=== PATIENT | male | born 1960 | race Caucasian/White ===

== ENCOUNTER 2022-04-29 10:20 | Emergency (ER) | payer OTHER, SELFPAY ==
--- NOTE | ~2022-04-29 | CT_ITS ---
EXAMINATION: CT HEAD WITHOUT CONTRAST CLINICAL INFORMATION: Frequent falls. COMPARISON: None TECHNIQUE: Contiguous axial imaging was performed from the skull base to vertex without intravenous administration of contrast. This CT examination was performed using dose optimization techniques as appropriate, variously including the following: *Automated exposure control *Adjustment of mA and/or kV according to patient size (this includes techniques or standardized protocols for targeted exams where dose is matched to indication/reason for exam; i.e. extremities or head) *Use of iterative reconstruction technique DLP: 822 mGy-cm FINDINGS: There is prominence to the sulci and ventricles consistent with involutional change. No hemorrhage, mass or mass effect or extra-axial collection. Focal encephalomalacia in the right posterior parietal lobe near the vertex may be due to an old insult. The calvarium is intact. Evidence of chronic right mastoiditis. There is mucoperiosteal thickening in the right ethmoid sinuses. CT/CT head/brain wo IV con IMPRESSION: No acute intracranial abnormality. No fracture.
--- NOTE | ~2022-04-29 | XR_ITS ---
EXAMINATION: XR CHEST CLINICAL INFORMATION: Chest pain COMPARISON: None TECHNIQUE: Frontal view of the chest was obtained. FINDINGS: There is a faint but probably diffuse reticulonodular infiltrate present. Recommend follow-up PA lateral with deep inspiratory effort. Please note this study was done portably. Heart and pulmonary vessels are normal. The osseous structures appear intact. No pneumothorax. XR/XR chest 1V IMPRESSION: Faint reticulonodular infiltrate. Recommend follow-up PA lateral film or chest CT.
[2022-04-29 10:37] VITALS: BP 152/83; PULSE 97; RESP 16; TEMP 37.6; O2SAT 95; BMI 26.6
[2022-04-29 12:52] VITALS: BP 150/88; PULSE 81; RESP 16; TEMP 36.6; O2SAT 96
--- NOTE | 2022-04-29 12:59 | ED.FALL ---
HPI - Fall General Chief Complaint: Fall Stated Complaint: multiple fall Time Seen by Provider: 04/29/22 12:34 Source: patient and family (-[place]) Mode of arrival: ambulatory Limitations: no limitations Related Data Allergies Allergy/AdvReac Type Severity Reaction Status Date / Time No Known Allergies Allergy Verified 04/29/22 10:35 [facility] Social History Social History Alcohol intake: never Patient Tobacco Use Status: Never used Tobacco Use of substances other than those prescribed or required for medical reasons: No Advance Directives: No Advance Directives Information Provided: Yes Physical Exam Vital Signs: Vital Signs: Last Vital Signs Temp 97.9 F 04/29/22 15:50 Pulse 76 04/29/22 15:50 Resp 14 04/29/22 15:50 BP 129/81 04/29/22 15:50 Pulse Ox 95 04/29/22 15:50 O2 Del Method 04/29/22 15:50 BMI result Body Mass Index 26.6 - Fall Lab Data Result diagrams: 04/29/22 13:05 04/29/22 13:05 Labs: Lab Results 04/29/22 04/29/22 04/29/22 Range/Units 13:05 13:05 13:05 WBC 7.6 (4.8-10.8) X10*3/uL RBC 3.71 L (4.60-5.80) X10*6/uL Hgb 12.1 L (14.0-18.0) g/dl Hct 35.0 L (42.0-52.0) % MCV 94.3 (80.0-98.0) fL MCH 32.6 (27.0-33.0) pg MCHC 34.6 (31.0-36.0) g/dl RDW 12.0 (11.0-16.0) % Plt Count 295 (160-400) X10*3/uL MPV 9.6 (9.4-12.4) fL Immature Gran % (Auto) 0.3 (0.0-0.4) % Neut % (Auto) 57.1 (45-73) % Lymph % (Auto) 25.2 (20-40) % [place] % (Auto) 10.4 (2-11) % Eos % (Auto) 6.2 H (0-4) % Baso % (Auto) 0.8 (0-2) % Lymph # (Auto) 1.9 (1.2-4.9) X10*3/uL [place] # (Auto) 0.8 (0.1-1.2) X10*3/uL Eos # (Auto) 0.5 H (0.0-0.4) X10*3/uL Baso # (Auto) 0.1 (0.0-0.2) X10*3/uL Abs Immat Gran (auto) 0.02 (0.00-0.03) X10*3/uL Absolute Neuts (auto) 4.3 (2.0-8.3) x10*3/uL Absolute Nucleated RBC 0.000 (0.0-0.012) X10*3/uL Nucleated RBC % (auto) 0.0 (0.0-0.2) /100WBC PT 11.2 (10.0-13.1) SEC INR 1.0 (0.9-1.1) APTT 29.0 (26.0-36.4) SEC Sodium 140 (135-145) mmol/L Potassium 4.3 (3.3-5.1) mmol/L Chloride 102 (96-108) mmol/L Carbon Dioxide 29 (22-29) mmol/L Anion Gap 13 (12-20) BUN 9 (9-16) mg/dL Creatinine 1.14 (0.5-1.4) mg/dL Estim Creat Clear Calc 66.3 Estimated GFR > 60 Random Glucose 101 (60-115) mg/dL Calcium 8.8 (8.4-10.2) mg/dL Total Bilirubin 0.3 (0.0-1.0) mg/dL AST 29 (5-37) U/L ALT 21 (0-40) U/L Alkaline Phosphatase 79 (39-117) U/L Troponin I High Sens (<3.5-35.0) ng/L Total Protein 6.9 (6.5-8.0) g/dL Albumin 3.7 (3.5-5.0) g/dL Lipase 17 (8-78) U/L Ethyl Alcohol < 10 mg/dL COVID-19 (MARIA[facility]) (Negative) COVID-19 Clin Com 08/16/22 08/16/22 Range/Units 13:06 13:06 WBC (4.8-10.8) X10*3/uL RBC (4.60-5.80) X10*6/uL Hgb (14.0-18.0) g/dl Hct (42.0-52.0) % MCV (80.0-98.0) fL MCH (27.0-33.0) pg MCHC (31.0-36.0) g/dl RDW (11.0-16.0) % Plt Count (160-400) X10*3/uL MPV (9.4-12.4) fL Immature Gran % (Auto) (0.0-0.4) % Neut % (Auto) (45-73) % Lymph % (Auto) (20-40) % [place] % (Auto) (2-11) % Eos % (Auto) (0-4) % Baso % (Auto) (0-2) % Lymph # (Auto) (1.2-4.9) X10*3/uL [place] # (Auto) (0.1-1.2) X10*3/uL Eos # (Auto) (0.0-0.4) X10*3/uL Baso # (Auto) (0.0-0.2) X10*3/uL Abs Immat Gran (auto) (0.00-0.03) X10*3/uL Absolute Neuts (auto) (2.0-8.3) x10*3/uL Absolute Nucleated RBC (0.0-0.012) X10*3/uL Nucleated RBC % (auto) (0.0-0.2) /100WBC PT (10.0-13.1) SEC INR (0.9-1.1) APTT (26.0-36.4) SEC Sodium (135-145) mmol/L Potassium (3.3-5.1) mmol/L Chloride (96-108) mmol/L Carbon Dioxide (22-29) mmol/L Anion Gap (12-20) BUN (9-16) mg/dL Creatinine (0.5-1.4) mg/dL Estim Creat Clear Calc Estimated GFR Random Glucose (60-115) mg/dL Calcium (8.4-10.2) mg/dL Total Bilirubin (0.0-1.0) mg/dL AST (5-37) U/L ALT (0-40) U/L Alkaline Phosphatase (39-117) U/L Troponin I High Sens 6.3 (<3.5-35.0) ng/L Total Protein (6.5-8.0) g/dL Albumin (3.5-5.0) g/dL Lipase (8-78) U/L Ethyl Alcohol mg/dL COVID-19 ([facility]) Negative (Negative) COVID-19 Clin Com See Note Discharge Plan Discharge Clinical Impression: Multiple falls, Multiple system atrophy Patient Disposition: Home, Self-Care Additional Instructions: The CT scan of your brain revealed no skull fracture no bleeding in the brain this is reassuring Your blood work was unremarkable. Your frequent falls are due to your multiple system atrophy. You need to get home services to help with physical therapy and strengthening at home. We did have our director of casework services talk to you and you can reach out to them if you need more help arranging home services. [facility] to help you stay at home. Follow-up with your doctor in 2 days. Please return to the emergency department if your symptoms get worse or if you develop any symptoms that are concerning to you.
[2022-04-29 13:09] LABS: MANUAL DIFF FLAG NO
[2022-04-29 13:14] LABS: Basophils Absolute Auto 0.1 X10*3/uL (0.0-0.2); Basophils Percent Auto 0.8 % (0-2); Eosinophils Absolute Auto 0.5 X10*3/uL (0.0-0.4); Eosinophils Percent Auto 6.2 % (0-4); Hemoglobin 12.1 g/dl (14.0-18.0); Imm Gran Abs Auto 0.02 X10*3/uL (0.00-0.03); Imm Gran Pct Auto 0.3 % (0.0-0.4); Lymphocytes Absolute Auto 1.9 X10*3/uL (1.2-4.9); Lymphocytes Percent Auto 25.2 % (20-40); Mean Corpuscular HGB Conc 34.6 g/dl (31.0-36.0); Mean Corpuscular Hemoglobin 32.6 pg (27.0-33.0); Mean Corpuscular Volume 94.3 fL (80.0-98.0); Mean Platelet Volume 9.6 fL (9.4-12.4); Monocytes Absolute Auto 0.8 X10*3/uL (0.1-1.2); Monocytes Percent Auto 10.4 % (2-11); Neutrophils Absolute Auto 4.3 x10*3/uL (2.0-8.3); Neutrophils Percent Auto 57.1 % (45-73); Platelet Count 295 X10*3/uL (160-400); Red Blood Count 3.71 X10*6/uL (4.60-5.80); White Blood Count 7.6 X10*3/uL (4.8-10.8)
[2022-04-29 13:15] VITALS: BP 131/86; PULSE 70; RESP 14; TEMP 36.6; O2SAT 96
[2022-04-29 13:22] LABS: Prothrombin Time 11.2 SEC (10.0-13.1)
[2022-04-29 13:30] LABS: Alanine Aminotransferase 21 U/L (0-40); Albumin Level 3.7 g/dL (3.5-5.0); Alkaline Phosphatase 79 U/L (39-117); Anion Gap 13 (12-20); Aspartate Amino Transferase 29 U/L (5-37); Bilirubin Total 0.3 mg/dL (0.0-1.0); Blood Urea Nitrogen 9 mg/dL (9-16); Calcium 8.8 mg/dL (8.4-10.2); Carbon Dioxide 29 mmol/L (22-29); Chloride 102 mmol/L (96-108); Creatinine Clr Calc Pharmacy 66.3; Estimated Glomerular Filt Rate > 60; Ethanol < 10 mg/dL; Glucose Random 101 mg/dL (60-115); Lipase 17 U/L (8-78); Potassium 4.3 mmol/L (3.3-5.1); Sodium 140 mmol/L (135-145); Total Protein 6.9 g/dL (6.5-8.0)
[2022-04-29 13:35] LABS: Troponin-I High Sensitivity 6.3 ng/L (<3.5-35.0)
[2022-04-29 13:40] LABS: COVID-19 Test Negative (Negative); IDNOW Serial# 9DB6401D
--- NOTE | 2022-04-29 14:02 | MHC.CM.ED ---
T/W MET WITH PATIENT AND IN ROOM) WITH PERMISSION. PATIENT STATES THAT HE IS NOT SERVICE CONNECTED; HOWEVER, THE [facility] DOES OFFER IN HOME HEALTH AIDE 3 DAYS PER WEEK. COUPLE MOVED INTO THE DUPLEX LAST NIGHT (04/28/22) AND PATIENT FEELS HE CAN USE HIS WALKER/ROLLATOR MORE EASILY IN THIS ENVIRONMENT. HE DOES NOT WANT TO GO TO ANY SNF HE WANTS HOME WITH POSSIBLE INCREASE IN SERVICES AND PATIENT AGREE TO A REFERRAL TO [facility] ([facility] NOW PLACED.
[2022-04-29] MEDS: Ibuprofen 600 MG TABLET PO (14:29)
[2022-04-29 15:50] VITALS: BP 129/81; PULSE 76; RESP 14; TEMP 36.6; O2SAT 95
--- NOTE | 2022-04-29 16:10 | PC.NURSE ---
discussion with pt and family at bedside- pt aox person, year, and place. refusing pt/cm services and wanting to go home. family at bedside states she no longer feels like she can care for him at home. [facility]. md aware states he will discuss with pt/family as well.
== END 2022-04-29 16:31 | disposition home or self-care (01) ==
PROVIDERS: Emergency Provider Emergency Medicine Emergency Medical Services; PCP Physician Assistant
DX: R07.89 Other chest pain (principal); M89.8X9 Other specified disorders of bone, unspecified site; R51.9 Headache, unspecified; Z91.81 History of falling; Z20.822 Contact with and (suspected) exposure to COVID-19; Z79.899 Other long term (current) drug therapy
CPT/HCPCS: 70450; 71045; 80053; 82077; 83690; 84484; 85025; 85610; 85730; 87635; 99284

== ENCOUNTER 2022-07-29 20:43 | Emergency (ER) | payer OTHER, SELFPAY ==
--- NOTE | ~2022-07-29 | CT_ITS ---
EXAMINATION: NONCONTRAST HEAD CT NONCONTRAST CERVICAL SPINE CT INDICATION INFORMATION: Fall with head strike and pain COMPARISON: Head CT 04/29/2022 TECHNIQUE: Separate noncontrast CT examinations of the head and cervical spine were performed. Coronal and sagittal images were created for each examination at the technologist workstation. This CT examination was performed using dose optimization techniques as appropriate, variously including the following: *Automated exposure control *Adjustment of mA and/or kV according to patient size (this includes techniques or standardized protocols for targeted exams where dose is matched to indication/reason for exam; i.e. extremities or head) *Use of iterative reconstruction technique DLP: 1375 mGy-cm FINDINGS: HEAD: No intra or extra-axial fluid collection, hemorrhage, or mass. No ventriculomegaly. No midline shift or herniation. Basal cisterns are patent. Powell-white matter differentiation is maintained. Unchanged small area of encephalomalacia in the high right parietal lobe consistent with prior small infarct. Mild cerebral volume loss. There is enlargement of the lateral ventricles perhaps mildly out of proportion to the degree of atrophy. Findings may be due to central white matter loss versus normal pressure hydrocephalus. Correlate clinically. Small area of hypoattenuation/gliosis in the high right parietal lobe related to patient's remote infarct. Otherwise, no abnormal hypoattenuation in the white matter. No calvarial fracture or soft tissue abnormality. Complete opacification of the frontal and right maxillary sinuses with hyperostosis consistent with chronic paranasal sinus disease. Mastoid air cells normally aerated. CERVICAL SPINE: Alignment: Minimal retrolisthesis at C4-C5, C5-C6 and C6-C7 related to advanced degenerative disc disease at these levels. No additional subluxation. Vertebra: No acute fracture. No prevertebral soft tissue swelling. Degenerative disc disease: Multilevel cervical spondylosis most advanced at C4-C5, C5-C6, and C6-C7 with severe disc height loss, endplate sclerosis, and proliferative change at these levels. Advanced multilevel facet arthrosis. Right-sided facet joint ankylosis at C2-C3. Multilevel bilateral uncovertebral spurring. At least moderate central spinal canal narrowing at C5-C6. Other findings: Small calcified granuloma in the lateral right lung apex. Lung apices otherwise grossly clear allowing for motion artifact. Thyroid gland and visualized major salivary glands unremarkable. No cervical adenopathy/mass identified. CT/CT cervical spine wo IV con IMPRESSION: 1. No intracranial hemorrhage, calvarial fracture, or other acute intracranial abnormality. 2. No traumatic subluxation or acute cervical spine fracture. 3. Mild cerebral volume loss with enlargement of the lateral ventricles perhaps mildly out of proportion to the degree of atrophy. Findings may be due to central white matter loss or conceivably normal pressure hydrocephalus. Correlate clinically with signs or symptoms of normal pressure hydrocephalus. 4. Chronic paranasal sinus disease. 5. Multilevel cervical spondylosis most advanced at C4-C5, C5-C6, and C6-C7 with at least moderate central spinal canal narrowing at C5-C6.
--- NOTE | ~2022-07-29 | CT_ITS ---
EXAMINATION: CT LUMBAR SPINE WITHOUT CONTRAST CLINICAL INFORMATION: Back pain after fall COMPARISON: None TECHNIQUE: Axial images obtained through the lumbar spine without the administration of intravenous contrast. Coronal and sagittal reformatted images were generated. This CT examination was performed using dose optimization techniques as appropriate, variously including the following: *Automated exposure control *Adjustment of mA and/or kV according to patient size (this includes techniques or standardized protocols for targeted exams where dose is matched to indication/reason for exam; i.e. extremities or head) *Use of iterative reconstruction technique DLP; 609 mGy-cm FINDINGS: Approximately 1 cm grade 2 anterolisthesis of L4 upon L5 related to advanced facet arthrosis. No additional subluxation. No pars defects. No acute fracture. Severe disc height loss at L4-L5 with endplate sclerosis, mild endplate cystic and prominent endplate proliferative change consistent with severe degenerative disc disease. Milder disc degenerative change throughout the remainder of the lumbar spine with minimal disc height loss at L2-L3. Advanced bilateral facet arthrosis at L3-L4 through L5-S1. Mild to moderate central spinal canal narrowing suspected at L3-L4 due to diffuse disc bulge and bilateral facet arthrosis with mild to moderate left and mild right neural foraminal stenosis. At L4-L5, at least moderate central spinal canal stenosis due to anterolisthesis and bilateral facet arthrosis. Moderate to severe bilateral neural foraminal narrowing. Visualized paravertebral soft tissues demonstrate normal caliber abdominal aorta with mild vascular calcifications. No retroperitoneal lymphadenopathy. No hydronephrosis. No retroperitoneal hematoma. Sigmoid diverticulosis. SI joints are congruent and intact. CT/CT lumbar spine wo IV con IMPRESSION: 1. No traumatic subluxation or acute lumbar spine fracture. 2. Grade 2 anterolisthesis of L4 upon L5 related to advanced facet arthrosis. Severe degenerative disc disease at L4-L5 with at least moderate central spinal canal stenosis and moderate to severe bilateral neural foraminal narrowing. 3. Milder disc degenerative change throughout the remainder of the lumbar spine with mild to moderate central spinal canal stenosis at L3-L4. 4. Advanced bilateral facet arthrosis at L3-L4 through L5-S1.
[2022-07-29 20:54] VITALS: BP 160/80; PULSE 100; O2SAT 98
[2022-07-29 20:55] VITALS: BP 127/84; PULSE 92; RESP 17; TEMP 36.8; O2SAT 94; BMI 31.0
--- NOTE | 2022-07-29 21:05 | ECG_ITS ---
Test Reason : FALL Blood Pressure : / mmHG Vent. Rate : 085 BPM Atrial Rate : 085 BPM P-R Int : 170 ms QRS Dur : 102 ms QT Int : 386 ms P-R-T Axes : 036 -30 021 degrees QTc Int : 459 ms Poor data quality Normal sinus rhythm Left anterior fascicular block Nonspecific T wave abnormality RSR' or QR pattern in V1 suggests right ventricular conduction delay Minimal voltage criteria for LVH, may be normal variant ( R in aVL ) Abnormal ECG No previous ECGs available Referred By: Lucinda Love Electronically Signed By:NATASHA CARBAJAL MD
--- NOTE | 2022-07-29 21:16 | ED_ITS ---
HPI - Fall General Chief Complaint: Fall Stated Complaint: fall with lower back pain Time Seen by Provider: 07/29/22 20:54 Source: patient and EMS Mode of arrival: EMS Limitations: no limitations History of Present Illness HPI Narrative: 62 year old male with with a PMH of multiple system atrophy, HTN Presents to the ED via EMS with a c-collar c/o of an unwitnessed fall today while in the bathroom. He reports being unstable standing on his legs and unsteady gait which led to the fall. He reports hitting his head against the bathtub. He denies LOC and doesn't take any blood thinner. He endorses left side head pain, neck pain and lower back pain. He denies any lightheadedness, dizziness and blurry vision. MD complaint: fall Onset (ago): hour(s) (Few hours ago) Fall from: standing Fall witnessed: no Place fall occurred: home Loss of consciousness: none Symptoms prior to fall: none Related Data Allergies Allergy/AdvReac Type Severity Reaction Status Date / Time No Known Allergies Allergy Verified 04/29/22 10:35 Review of Systems Review of Systems: Constitutional: No Fever, No Chills ENT/Mouth: No sore throat, No Rhinorrhea, No Swallowing Difficulty Eyes: No Eye Pain, No Swelling, No Redness Cardiovascular: No Chest Pain, No SOB, No Orthopnea, No Edema Respiratory: No Cough, No Sputum, No Wheezing, No dyspnea Gastrointestinal: No Nausea, No Vomiting, No Diarrhea, No abdominal Pain Genitourinary: No Dysuria, No Urinary Frequency, No Hematuria Musculoskeletal: + Left sided head pain, + Neck Pain ,+ Low back pain, No Myalgias Skin: No Skin Lesions, No rash, + Superficial scabs on bilateral legs Neuro: +Weakness, No Numbness, No Dizziness, + Headache ,+ Unsteady gait PMFSH Past Medical History Attestation statement: The following information was validated with the patient. Social History Social History Alcohol intake: never Patient Tobacco Use Status: Never used Tobacco Advance Directives: No Advance Directives Information Provided: No Physical Exam Vital Signs: Vital Signs: Last Vital Signs Temp 98.3 F 07/29/22 21:32 Pulse 84 07/29/22 21:32 Resp 16 07/29/22 21:32 BP 117/79 07/29/22 21:32 Pulse Ox 96 07/29/22 21:32 O2 Del Method 07/29/22 21:32 BMI result Body Mass Index 31.0 Appearance: Alert. Oriented X3. No acute distress. Head: no palpable swelling or notable traumatic findings on scalp/head Eyes: Pupils equal, round and reactive to light. ENT: Pharynx normal. poor dentition Neck: Normal inspection. Neck supple. CVS: Normal heart rate and rhythm. Pulses normal. Respiratory: No respiratory distress. Breath sounds normal. Abdomen: Soft and nontender. +BS x4 Skin: Skin warm and dry. Normal skin color. +Superficial scabs on legs Muskoloskeletal: +Low back tenderness, + Left side head tenderness, +Neck tenderness, + bilateral Shoulder tenderness Extremities: No lower extremity edema. Neuro: Oriented X 3. No motor deficit. No sensory deficit. +LE Weakness bilaterally but able to lift both legs off of the bed. Course Course Course Narrative: 62-year-old male with a history of multiple system atrophy and recurrent falls at home presents to the ER for evaluation of low back pain in the setting of a fall in the bathroom today. He did hit the back of his head but did not lose consciousness. He arrives in a C-collar. Reporting low back pain. Will get CT scans of his head, neck, cervical spine. No red flag symptoms of low back pain. No other injuries. He is able to move all 4 extremities without any signs of trauma. Will get lab workup as well. Results pending dispo and improvement. Reevaluation(s) Reevaluation #1: Lab workup was unremarkable. CT scan of his head and c-spine: 1.? No intracranial hemorrhage, calvarial fracture, or other acute intracranial abnormality. 2.? No traumatic subluxation or acute cervical spine fracture. 3.? Mild cerebral volume loss with enlargement of the lateral ventricles perhaps mildly out of proportion to the degree of atrophy. Findings may be due to central white matter loss or conceivably normal pressure hydrocephalus. Correlate clinically with signs or symptoms of normal pressure hydrocephalus. 4.? Chronic paranasal sinus disease. 5.? Multilevel cervical spondylosis most advanced at C4-C5, C5-C6, and C6-C7 with at least moderate central spinal canal narrowing at C5-C6. CT SCAN LUMBAR SPINE: 1.? No traumatic subluxation or acute lumbar spine fracture. 2.? Grade 2 anterolisthesis of L4 upon L5 related to advanced facet arthrosis. Severe degenerative disc disease at L4-L5 with at least moderate central spinal canal stenosis and moderate to severe bilateral neural foraminal narrowing. 3.? Milder disc degenerative change throughout the remainder of the lumbar spine with mild to moderate central spinal canal stenosis at L3-L4. 4.? Advanced bilateral facet arthrosis at L3-L4 through L5-S1. Results reviewed with the patient. Cervical collar has been removed. No midline tenderness. Discussed with the and the patient concern for recurrent falls home. They are agreeable to staying in the emergency department for physical therapy evaluation in the morning, potential placement to short- term rehab. Will place patient in physician observation at this time. Physician observation started at 11:21 pm. Patient placed in physician observation because patient is awaiting PT evaluation for the possible need of short term rehab. At the time observation was started patient's vital signs were stable. Patient is alert and oriented. Neuro exam is non-focal. CV: RRR and lungs are clear. Will continue to monitor. Time: 23:21 MDM - Fall MDM Narrative Medical decision making narrative: 62 year old male with with a PMH of multiple system atrophy, HTN presents to the ED via EMS with a c-collar c/o of an unwitnessed fall today while in the bathroom. He reports hitting his head against the bathtub. He denies LOC and doesn't take blood thinners. Reports being unstable standing on his legs and unsteady gait which led to the fall. On exam , VSS, lung CTA, Left sided head, neck and lower back tenderness and weakness of lower extremities. Concern for worsening multiple system atrophy. Low suspicion for CVA, syncopal episode Plan: EKG, labs, CT head, Lumbar spine X-ray and neck Medical Records Attestation: I reviewed the patient's medical records. Lab Data Attestation: I reviewed the patient's lab results. Result diagrams: 07/29/22 21:31 07/29/22 21:31 Labs: Lab Results 07/29/22 07/29/22 07/29/22 Range/Units 21:31 21:31 21:31 WBC 6.9 (4.8-10.8) X10*3/uL RBC 4.20 L (4.60-5.80) X10*6/uL Hgb 13.6 L (14.0-18.0) g/dl Hct 38.3 L (42.0-52.0) % MCV 91.2 (80.0-98.0) fL MCH 32.4 (27.0-33.0) pg MCHC 35.5 (31.0-36.0) g/dl RDW 12.4 (11.0-16.0) % Plt Count 340 (160-400) X10*3/uL MPV 9.5 (9.4-12.4) fL Immature Gran % (Auto) 0.3 (0.0-0.4) % Neut % (Auto) 62.0 (45-73) % Lymph % (Auto) 23.6 (20-40) % [place] % (Auto) 10.3 (2-11) % Eos % (Auto) 2.9 (0-4) % Baso % (Auto) 0.9 (0-2) % Lymph # (Auto) 1.6 (1.2-4.9) X10*3/uL [place] # (Auto) 0.7 (0.1-1.2) X10*3/uL Eos # (Auto) 0.2 (0.0-0.4) X10*3/uL Baso # (Auto) 0.1 (0.0-0.2) X10*3/uL Abs Immat Gran (auto) 0.02 (0.00-0.03) X10*3/uL Absolute Neuts (auto) 4.3 (2.0-8.3) x10*3/uL Absolute Nucleated RBC 0.000 (0.0-0.012) X10*3/uL Nucleated RBC % (auto) 0.0 (0.0-0.2) /100WBC Sodium 143 (135-145) mmol/L Potassium 3.5 (3.3-5.1) mmol/L Chloride 106 (96-108) mmol/L Carbon Dioxide 26 (22-29) mmol/L Anion Gap 15 (12-20) BUN 14 (9-16) mg/dL Creatinine 1.17 (0.5-1.4) mg/dL Estim Creat Clear Calc 73.6 Estimated GFR > 60 Random Glucose 119 H (60-115) mg/dL Calcium 9.6 D (8.4-10.2) mg/dL Magnesium 1.7 (1.6-2.6) mg/dL Total Bilirubin 0.6 (0.0-1.0) mg/dL Direct Bilirubin 0.2 (0.0-0.5) mg/dL AST 21 (5-37) U/L ALT 14 (0-40) U/L Alkaline Phosphatase 78 (39-117) U/L Total Creatine Kinase (38-174) U/L Total Protein 7.4 (6.5-8.0) g/dL Albumin 4.0 (3.5-5.0) g/dL COVID-19 ([facility]) Negative (Negative) COVID-19 Clin Com See Note 07/29/22 Range/Units 21:31 WBC (4.8-10.8) X10*3/uL RBC (4.60-5.80) X10*6/uL Hgb (14.0-18.0) g/dl Hct (42.0-52.0) % MCV (80.0-98.0) fL MCH (27.0-33.0) pg MCHC (31.0-36.0) g/dl RDW (11.0-16.0) % Plt Count (160-400) X10*3/uL MPV (9.4-12.4) fL Immature Gran % (Auto) (0.0-0.4) % Neut % (Auto) (45-73) % Lymph % (Auto) (20-40) % [place] % (Auto) (2-11) % Eos % (Auto) (0-4) % Baso % (Auto) (0-2) % Lymph # (Auto) (1.2-4.9) X10*3/uL [place] # (Auto) (0.1-1.2) X10*3/uL Eos # (Auto) (0.0-0.4) X10*3/uL Baso # (Auto) (0.0-0.2) X10*3/uL Abs Immat Gran (auto) (0.00-0.03) X10*3/uL Absolute Neuts (auto) (2.0-8.3) x10*3/uL Absolute Nucleated RBC (0.0-0.012) X10*3/uL Nucleated RBC % (auto) (0.0-0.2) /100WBC Sodium (135-145) mmol/L Potassium (3.3-5.1) mmol/L Chloride (96-108) mmol/L Carbon Dioxide (22-29) mmol/L Anion Gap (12-20) BUN (9-16) mg/dL Creatinine (0.5-1.4) mg/dL Estim Creat Clear Calc Estimated GFR Random Glucose (60-115) mg/dL Calcium (8.4-10.2) mg/dL Magnesium (1.6-2.6) mg/dL Total Bilirubin (0.0-1.0) mg/dL Direct Bilirubin (0.0-0.5) mg/dL AST (5-37) U/L ALT (0-40) U/L Alkaline Phosphatase (39-117) U/L Total Creatine Kinase 166 (38-174) U/L Total Protein (6.5-8.0) g/dL Albumin (3.5-5.0) g/dL COVID-19 (MARIA[facility]) (Negative) COVID-19 Clin Com ECG Data Attestation: I personally reviewed and interpreted this ECG as follows: ECG interpretation date: 07/29/22 ECG interpretation time: 23:24 Prior ECG tracings: not available for review Interpretation: Normal sinus rhythm, left axis deviation, ventricular rate 85 beats per minute, normal MS interval, T-wave inversion in V2 only. No ST segment elevations or depressions. Discharge Plan Discharge Clinical Impression: Low back pain, Recurrent falls Patient Disposition: Still a Patient
[2022-07-29 21:32] VITALS: BP 117/79; PULSE 84; RESP 16; TEMP 36.8; O2SAT 96
[2022-07-29 21:37] LABS: MANUAL DIFF FLAG NO
[2022-07-29 21:40] LABS: Basophils Absolute Auto 0.1 X10*3/uL (0.0-0.2); Basophils Percent Auto 0.9 % (0-2); Eosinophils Absolute Auto 0.2 X10*3/uL (0.0-0.4); Eosinophils Percent Auto 2.9 % (0-4); Hematocrit 38.3 % (42.0-52.0); Hemoglobin 13.6 g/dl (14.0-18.0); Imm Gran Abs Auto 0.02 X10*3/uL (0.00-0.03); Imm Gran Pct Auto 0.3 % (0.0-0.4); Lymphocytes Absolute Auto 1.6 X10*3/uL (1.2-4.9); Lymphocytes Percent Auto 23.6 % (20-40); Mean Corpuscular HGB Conc 35.5 g/dl (31.0-36.0); Mean Corpuscular Hemoglobin 32.4 pg (27.0-33.0); Mean Corpuscular Volume 91.2 fL (80.0-98.0); Mean Platelet Volume 9.5 fL (9.4-12.4); Monocytes Absolute Auto 0.7 X10*3/uL (0.1-1.2); Monocytes Percent Auto 10.3 % (2-11); Neutrophils Absolute Auto 4.3 x10*3/uL (2.0-8.3); Platelet Count 340 X10*3/uL (160-400); Red Cell Distribution Width 12.4 % (11.0-16.0); White Blood Count 6.9 X10*3/uL (4.8-10.8)
[2022-07-29 21:55] LABS: Alanine Aminotransferase 14 U/L (0-40); Alkaline Phosphatase 78 U/L (39-117); Anion Gap 15 (12-20); Aspartate Amino Transferase 21 U/L (5-37); Bilirubin Direct 0.2 mg/dL (0.0-0.5); Bilirubin Total 0.6 mg/dL (0.0-1.0); Blood Urea Nitrogen 14 mg/dL (9-16); Calcium 9.6 mg/dL (8.4-10.2); Carbon Dioxide 26 mmol/L (22-29); Chloride 106 mmol/L (96-108); Creatinine Clr Calc Pharmacy 73.6; Estimated Glomerular Filt Rate > 60; Glucose Random 119 mg/dL (60-115); Magnesium 1.7 mg/dL (1.6-2.6); Potassium 3.5 mmol/L (3.3-5.1); Sodium 143 mmol/L (135-145); Total Protein 7.4 g/dL (6.5-8.0)
[2022-07-29 22:10] LABS: COVID-19 Test Negative (Negative); IDNOW Serial# 16C4AD1C
[2022-07-29] MEDS: Ibuprofen 600 MG TABLET PO (23:19)
[2022-07-29] MEDS: oxyCODONE HCl Immed Release 5 MG TABLET PO (23:19)
--- NOTE | 2022-07-29 23:26 | PC.NURSE ---
Pt resting on stretcher at this time. given sunbutter and jelly sandwhich and diet esau jay. Medicated per MAR for pain.
[2022-07-29 23:54] VITALS: BP 127/75; PULSE 76; RESP 16; TEMP 36.7; O2SAT 96
[2022-07-30] VITALS (7 sets, daily range): BP systolic 108–147; BP diastolic 59–99; PULSE 66–105; RESP 16–17; TEMP 36.4–36.9; O2SAT 94–98
--- NOTE | 2022-07-30 04:00 | PC.NURSE ---
this rn observed pt sleeping quietly at this time
--- NOTE | 2022-07-30 04:40 | PC.NURSE ---
pt awake and requested pudding.this rn provided pudding as requested. instructed pt to use callbell for any additional needs
--- NOTE | 2022-07-30 11:38 | PC.NURSE ---
Gladys from pharmacy to complete med rec for this patient
--- NOTE | 2022-07-30 11:50 | PC.NURSE ---
pt had soiled himself when trying to urinate in the urinal. this tech had helped clean up the pt and change linen. pt is comfortable, no signs of distress.
[2022-07-30 12:00] LABS: Appearance Urine Clear; Color Urine Dark Yellow; Glucose Urine UA Negative (Negative); Leukocyte Esterase Urine Negative (Negative); Nitrite Urine Negative (Negative); PH 5.5 (5.0-9.0); UMIC TRIGGER UACC YES; Urine Blood Negative (Negative); Urine Ketones Trace mg/dL (Negative); Urine Protein 30 (1+) mg/dL (Neg-Trace)
[2022-07-30 12:12] LABS: Bacteria Urine None Seen (None Seen); RBC Urine 0-2 /HPF (0-2); Squamous Epithelial Cell Urine 0-2 /HPF (0-2); WBC Urine 0-5 /HPF (0-5)
--- NOTE | 2022-07-30 14:23 | MHC.CM.ED ---
Received case management consult overnight. Patient came to the ER due to a fall with back pain. Work up essentially negative. Physical therapy eval completed. Short term rehab is recommended. Patient has [facility] benefits. T/W spoke with Maggy at [place]. Patient is not service connected for short term rehab. Attempted to meet with patient in regards to discharge planning. Patient currently sleeping. Spoke with patient's , Carolina, via telephone at [phone]. Patient has traditional Medicare. T/W is in the process of trying to obtain that Medicare number. Patient lives with Carolina, ambulates with a walker and has a home health aide through [facility]. PCP is Kierra Krishnan. Copy of HCP obtained from OR. Patient has received 3 Pfizer vaccines. Patient has never been to short term rehab. Carolina agreeable to referral being broadcasted in [facility]. Carolina would like to stay close to home. [facility] would be 1st choice. Continue to monitor for d/c needs.
[2022-07-30] MEDS: Omeprazole 20 MG CAPSULE.DR PO (15:36)
[2022-07-30] MEDS: buPROPion HCl XL 300 MG TAB.ER.24H PO (15:36)
[2022-07-30] MEDS: hydroCHLOROthiazide 25 MG TABLET PO (15:36)
[2022-07-30] MEDS: Atorvastatin Calcium 20 MG TABLET PO (15:37)
--- NOTE | 2022-07-30 16:20 | PC.NURSE ---
THIS PCT ASSUMED CARE OF PT AT 1500 ,.VS TAKEN AND SARS COVID SWAB DONE AND SEND TO LAB ,CALL CASE WITHIN REACH .
--- NOTE | 2022-07-30 16:42 | PC.NURSE ---
RENAE Dangelo aware of patients HR
[2022-07-30 20:38] LABS: Influenza A PCR NEGATIVE (Negative); Influenza B PCR NEGATIVE (Negative); Resp Syncy Virus RNA Qual PCR NEGATIVE (Negative); SARS COV2 PCR INHOUSE NEGATIVE (Negative)
[2022-07-30] MEDS: traZODone HCL 100 MG TABLET 200 MG PO (20:38)
[2022-07-30] MEDS: Buprenorphine/Naloxone 2/0.5mg FILM 2 FILM SUBLINGUAL (20:41)
[2022-07-31 00:30] VITALS: BP 140/99; PULSE 108; TEMP 37.1; O2SAT 93
[2022-07-31] MEDS: Ibuprofen 600 MG TABLET PO ×3 (00:39→16:21)
--- NOTE | 2022-07-31 00:41 | PC.NURSE ---
Pt complaining of 9/10 pain in the right shoulder. Pt stated his arm got caught and is now causing pain. 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
[2022-07-31] MEDS: Omeprazole 20 MG CAPSULE.DR PO (06:02)
[2022-07-31 06:22] VITALS: BP 133/76; PULSE 95; TEMP 36.7; O2SAT 94
[2022-07-31] MEDS: Atorvastatin Calcium 20 MG TABLET PO (07:43)
[2022-07-31] MEDS: hydroCHLOROthiazide 25 MG TABLET PO (07:43)
[2022-07-31] MEDS: buPROPion HCl XL 300 MG TAB.ER.24H PO (07:43)
[2022-07-31] MEDS: Buprenorphine/Naloxone 2/0.5mg FILM 2 FILM SUBLINGUAL ×2 (07:43→21:48)
[2022-07-31] MEDS: Acetaminophen 325 MG TABLET 650 MG PO ×2 (08:44→16:20)
--- NOTE | 2022-07-31 09:01 | MHC.CM.ED ---
Addendum entered by Kaya Caballero 07/31/22 16:17: Patient and Carolina aware of discharge issues. Addendum entered by Kaya Caballero 07/31/22 13:25: [facility] is not able to offer a bed at this time due to Suboxone. Referral rebroadcasted in [facility]. Suboxone is prescribed by Rajat Ferris at the [place]. Will need [facility] Level 2. T/W already submitted for Level 2. Addendum entered by Kaya Caballero 07/31/22 13:05: While reviewing MAR, realized patient receives Suboxone. Patient has a history of opiod dependence in remission. [facility] Patient has been compliant with regimen and has consistently had negative drug screening with their providers. Original Note: Patient remains in ER. PCR Covid is negative. Medicar ID# obtained. [facility] is 1st choice. Waiting to hear if they can offer a bed today. Continue to monitor for d/c needs.
--- NOTE | 2022-07-31 09:21 | PC.NURSE ---
pt awoke easily to voice this am, sts having shoulder pain. given hs medications which include medications for pain, able to get self comfortable in stretcher. ate breakfast. pleasant in conversation, awaiting insurance information and bed placement for snf.
[2022-07-31 10:07] VITALS: BP 140/78; PULSE 83; RESP 16; O2SAT 94
--- NOTE | 2022-07-31 10:10 | PC.NURSE ---
Pt was assisted with a complete bed bath. Pt uses urinal but has some urinal incontinence.
--- NOTE | 2022-07-31 14:44 | PC.NURSE ---
pt would like to wait until his motrin is due to have his tylenol. whit updated by phone about plan of care.
--- NOTE | 2022-07-31 19:38 | PC.NURSE ---
Pt found standing at the bedside requesting assistance. Assistance provided with placing pt in bed. Pt encouraged to ask for assistance with ambulation as pt has a high fall risk. Pt verbalizes understanding. Call joya provided to pt.
[2022-07-31] MEDS: traZODone HCL 100 MG TABLET 200 MG PO (21:48)
[2022-08-01] MEDS: Acetaminophen 325 MG TABLET 650 MG PO ×4 (02:01→21:38)
[2022-08-01 02:59] VITALS: BP 134/87; PULSE 98; RESP 18; TEMP 37; O2SAT 92
--- NOTE | 2022-08-01 03:41 | PC.NURSE ---
Pt sleeping in no apparent distress. Breaths are even and unlabored with equal chest rises. Will continue to monitor.
[2022-08-01] MEDS: Omeprazole 20 MG CAPSULE.DR PO (05:50)
[2022-08-01 07:45] VITALS: BP 119/84; PULSE 84; RESP 16; O2SAT 92
[2022-08-01] MEDS: Atorvastatin Calcium 20 MG TABLET PO (08:12)
[2022-08-01] MEDS: buPROPion HCl XL 300 MG TAB.ER.24H PO (08:13)
[2022-08-01] MEDS: hydroCHLOROthiazide 25 MG TABLET PO (08:13)
--- NOTE | 2022-08-01 08:31 | MHC.CM.ED ---
Patient remains in ER. May be difficult to place due to being on Suboxone. [facility] [place] might be able to offer a bed if patient's Suboxone provider will write prescriptions for Suboxone. Continue to monitor for d/c needs.
[2022-08-01] MEDS: Buprenorphine/Naloxone 2/0.5mg FILM 2 FILM SUBLINGUAL ×2 (09:00→21:39)
[2022-08-01] MEDS: traZODone HCL 100 MG TABLET 200 MG PO (21:39)
[2022-08-02] MEDS: Magnesium Hydrox/Alum Hydrox 30 ML ORAL.SUSP PO (01:35)
[2022-08-02 01:36] VITALS: BP 140/84; PULSE 118; RESP 18; TEMP 36.7; O2SAT 94
[2022-08-02 07:20] VITALS: BP 131/91; PULSE 110; RESP 18; TEMP 36.6; O2SAT 92
[2022-08-02] MEDS: buPROPion HCl XL 300 MG TAB.ER.24H PO (08:06)
[2022-08-02] MEDS: Buprenorphine/Naloxone 2/0.5mg FILM 2 FILM SUBLINGUAL ×2 (08:07→20:37)
[2022-08-02] MEDS: Acetaminophen 325 MG TABLET 650 MG PO ×3 (08:07→20:36)
[2022-08-02] MEDS: Atorvastatin Calcium 20 MG TABLET PO (08:07)
[2022-08-02] MEDS: Omeprazole 20 MG CAPSULE.DR PO (08:07)
[2022-08-02] MEDS: hydroCHLOROthiazide 25 MG TABLET PO (08:07)
[2022-08-02 12:27] VITALS: BP 142/96; PULSE 110; RESP 18; TEMP 36.6; O2SAT 92
[2022-08-02] MEDS: Ibuprofen 600 MG TABLET PO (15:09)
--- NOTE | 2022-08-02 18:28 | PC.NURSE ---
1800 rounding done ,pt refused supper said he has indegestion ,rn hugo hurtado is aware .
--- NOTE | 2022-08-02 20:09 | PC.NURSE ---
2000 ROUNDING DONE PT WATCHING TELEVISION ,CALL CASE WITHIN REACH .
[2022-08-02 20:31] VITALS: BP 148/95; PULSE 129; RESP 20; TEMP 36.6; O2SAT 93
[2022-08-02] MEDS: traZODone HCL 100 MG TABLET 200 MG PO (20:37)
--- NOTE | 2022-08-02 20:39 | PC.NURSE ---
Pt's was connected to the monitor d/t HR 130. pt took his meds as order.
[2022-08-02 23:49] VITALS: BP 114/78; PULSE 110; RESP 16; TEMP 36.6; O2SAT 92
--- NOTE | 2022-08-03 00:06 | PC.NURSE ---
0000 ROUNDING DONE PT ASLEEP ,CALL CASE WITHIN REACH .
--- NOTE | 2022-08-03 02:10 | PC.NURSE ---
0200 rounding done pt asleep ,call joya within reach .
[2022-08-03] MEDS: Omeprazole 20 MG CAPSULE.DR PO (05:41)
[2022-08-03] MEDS: Acetaminophen 325 MG TABLET 650 MG PO ×2 (05:41→20:19)
[2022-08-03 07:17] VITALS: BP 120/85; PULSE 115; RESP 14; TEMP 36.9; O2SAT 94
[2022-08-03 09:02] VITALS: BP 117/84; PULSE 112
[2022-08-03] MEDS: hydroCHLOROthiazide 25 MG TABLET PO (09:02)
[2022-08-03] MEDS: Buprenorphine/Naloxone 2/0.5mg FILM 2 FILM SUBLINGUAL ×2 (09:02→20:19)
[2022-08-03] MEDS: buPROPion HCl XL 300 MG TAB.ER.24H PO (09:03)
[2022-08-03] MEDS: Atorvastatin Calcium 20 MG TABLET PO (09:03)
--- NOTE | 2022-08-03 11:45 | ECG_ITS ---
Test Reason : TACHYCARDIA Blood Pressure : / mmHG Vent. Rate : 125 BPM Atrial Rate : 125 BPM P-R Int : 136 ms QRS Dur : 084 ms QT Int : 344 ms P-R-T Axes : 032 -32 011 degrees QTc Int : 496 ms Sinus tachycardia Left anterior fascicular block RSR' or QR pattern in V1 suggests right ventricular conduction delay Nonspecific T wave abnormality Abnormal ECG When compared with ECG of 29-JUL-2022 21:19, QRS duration has decreased T wave inversion no longer evident in Anterior leads Heart rate has increased Referred By: Toshia Bailey Electronically Signed By:NATASHA CARBAJAL MD
[2022-08-03] MEDS: 0.9 % Sodium Chloride 1,000 ML 999 ML IV (12:11)
[2022-08-03 12:17] LABS: MANUAL DIFF FLAG NO
[2022-08-03 12:19] LABS: Basophils Absolute Auto 0.1 X10*3/uL (0.0-0.2); Basophils Percent Auto 0.7 % (0-2); Eosinophils Absolute Auto 0.3 X10*3/uL (0.0-0.4); Eosinophils Percent Auto 3.1 % (0-4); Hematocrit 42.2 % (42.0-52.0); Hemoglobin 14.7 g/dl (14.0-18.0); Imm Gran Abs Auto 0.02 X10*3/uL (0.00-0.03); Imm Gran Pct Auto 0.2 % (0.0-0.4); Lymphocytes Absolute Auto 2.6 X10*3/uL (1.2-4.9); Lymphocytes Percent Auto 25.2 % (20-40); Mean Corpuscular HGB Conc 34.8 g/dl (31.0-36.0); Mean Corpuscular Hemoglobin 32.5 pg (27.0-33.0); Mean Corpuscular Volume 93.2 fL (80.0-98.0); Mean Platelet Volume 9.4 fL (9.4-12.4); Monocytes Absolute Auto 0.8 X10*3/uL (0.1-1.2); Monocytes Percent Auto 7.8 % (2-11); Neutrophils Absolute Auto 6.6 x10*3/uL (2.0-8.3); Platelet Count 377 X10*3/uL (160-400); Red Blood Count 4.53 X10*6/uL (4.60-5.80); Red Cell Distribution Width 12.3 % (11.0-16.0); White Blood Count 10.5 X10*3/uL (4.8-10.8)
[2022-08-03 12:39] LABS: Anion Gap 15 (12-20); Blood Urea Nitrogen 22 mg/dL (9-16); Calcium 9.7 mg/dL (8.4-10.2); Carbon Dioxide 26 mmol/L (22-29); Chloride 100 mmol/L (96-108); Creatinine Clr Calc Pharmacy 66.7; Estimated Glomerular Filt Rate 56; Glucose Random 207 mg/dL (60-115); Magnesium 1.6 mg/dL (1.6-2.6); Potassium 4.1 mmol/L (3.3-5.1); Sodium 137 mmol/L (135-145)
[2022-08-03 12:46] LABS: Troponin-I High Sensitivity 32.4 ng/L (<3.5-35.0)
[2022-08-03] MEDS: LORazepam 1 MG TABLET 2 MG PO (13:17)
[2022-08-03] MEDS: Ibuprofen 600 MG TABLET PO (13:31)
[2022-08-03 13:33] LABS: Amphetamine Screen Urine Not Detected (Not Detect); Barbiturates, Urine Not Detected (Not Detect); Benzodiazepines Screen Urine POSITIVE (Not Detect); Cannabinoid Screen Urine Not Detected (Not Detect); Cocaine Screen Urine Not Detected (Not Detect); Fentanyl, urine POSITIVE (Not Detect); Opiate Screen Urine Not Detected (Not Detect); Phencyclidine Screen Urine Not Detected (Not Detect)
[2022-08-03 13:47] LABS: Thyroid Stimulating Hormone 1.25 uIU/mL (0.32-4.0)
[2022-08-03 15:38] VITALS: BP 131/82; PULSE 118; RESP 16; TEMP 36.8; O2SAT 96
[2022-08-03 16:16] LABS: Troponin-I High Sensitivity 31.3 ng/L (<3.5-35.0)
[2022-08-03] MEDS: traZODone HCL 100 MG TABLET 200 MG PO (20:17)
[2022-08-03 21:05] VITALS: BP 157/98; PULSE 125; RESP 18; TEMP 36.3; O2SAT 95
[2022-08-03 23:38] VITALS: BP 127/89; PULSE 118; TEMP 36.6; O2SAT 94
[2022-08-04] MEDS: Acetaminophen 325 MG TABLET 650 MG PO ×3 (02:46→20:45)
[2022-08-04 06:00] VITALS: BP 151/96; PULSE 96; TEMP 36.6; O2SAT 100
[2022-08-04] MEDS: Omeprazole 20 MG CAPSULE.DR PO (06:40)
[2022-08-04 07:06] VITALS: BP 138/91; PULSE 108; RESP 14; TEMP 36.8; O2SAT 94
[2022-08-04 07:23] VITALS: BP 147/75; PULSE 91; RESP 17; TEMP 37.1; O2SAT 99
[2022-08-04] MEDS: Buprenorphine/Naloxone 2/0.5mg FILM 2 FILM SUBLINGUAL ×2 (08:07→20:45)
[2022-08-04] MEDS: buPROPion HCl XL 300 MG TAB.ER.24H PO (08:07)
[2022-08-04] MEDS: hydroCHLOROthiazide 25 MG TABLET PO (08:07)
[2022-08-04] MEDS: Atorvastatin Calcium 20 MG TABLET PO (08:07)
--- NOTE | 2022-08-04 08:14 | PC.NURSE ---
patient a/ox4 . edgardorla . heart rate regular at 94 . lungs clear throughout , breathing even and unlabored . skin pink warm and dry . feet has dry peeling skin , red socks on bed at lowest position . abdomen soft . not tender . positive bowel sounds through out . patient uses urinal at bedside . patient plan for placement from case management for Physical therapy patient aware of plan of care .
--- NOTE | 2022-08-04 10:42 | PC.NURSE ---
given update on plan of care for patient to be discharged to [place] awaiting V.A .approval . patient aware of plan of care .
[2022-08-04 14:13] VITALS: BP 155/101; PULSE 105; RESP 16; TEMP 36.4; O2SAT 94
--- NOTE | 2022-08-04 14:18 | MHC.CM.ED ---
Patient remains in ER. [facility] is willing to accept patient once they are able to confirm patient's provider (Rajat Ferris) will write a prescription for the patient while he is at short term rehab. Continue to monitor for d/c needs.
[2022-08-04] MEDS: Ibuprofen 600 MG TABLET PO (14:29)
--- NOTE | 2022-08-04 18:16 | PC.NURSE ---
1800 rounding done ,pt watching television ,call joya within reach .
--- NOTE | 2022-08-04 20:12 | PC.NURSE ---
2000 rounding done pt dinner tray got pickling solution maker ,pt refused his meal ,but had a milk shake that was brought in by family ,urinal empty ,call joya within reach .
[2022-08-04] MEDS: traZODone HCL 100 MG TABLET 200 MG PO (20:45)
[2022-08-04 22:00] VITALS: BP 128/95; PULSE 114; RESP 16; TEMP 36.2; O2SAT 98
--- NOTE | 2022-08-04 22:28 | PC.NURSE ---
2200 rounding done ,vs taken ,pt was wet care given ,linen change ,warm blankets given ,pt refused fresh pitcher of water ,call joya within reach .
--- NOTE | 2022-08-04 23:52 | PC.NURSE ---
0000 rounding done ,pt awake ring for warm blanket,call joya within reach .
--- NOTE | 2022-08-05 01:16 | PC.NURSE ---
Pt sleeping at this time, respirations regular.
--- NOTE | 2022-08-05 02:02 | PC.NURSE ---
Pt sleeping at this time, respirations regular.
--- NOTE | 2022-08-05 02:10 | PC.NURSE ---
0200 rounding done pt sleeping ,call joya withing reach .
--- NOTE | 2022-08-05 03:22 | PC.NURSE ---
Pt sleeping at this time.
[2022-08-05] MEDS: Omeprazole 20 MG CAPSULE.DR PO (06:13)
[2022-08-05 06:14] VITALS: BP 126/89; PULSE 97; RESP 18; TEMP 36.3; O2SAT 92
[2022-08-05] MEDS: hydroCHLOROthiazide 25 MG TABLET PO (08:58)
[2022-08-05] MEDS: Atorvastatin Calcium 20 MG TABLET PO (08:58)
[2022-08-05] MEDS: Buprenorphine/Naloxone 2/0.5mg FILM 2 FILM SUBLINGUAL (08:58)
[2022-08-05] MEDS: Acetaminophen 325 MG TABLET 650 MG PO ×3 (08:58→20:51)
[2022-08-05] MEDS: buPROPion HCl XL 300 MG TAB.ER.24H PO (08:59)
[2022-08-05 09:12] VITALS: BP 120/76; PULSE 98; RESP 14; TEMP 36.4; O2SAT 92
--- NOTE | 2022-08-05 11:54 | MHC.CM.ED ---
Patient remains in ER. Release of information form obtained from [facility] so suboxone provider can provide information to the facility. Patient signed. Form returned to Radha at [facility]. Continue to monitor for d/c needs.
[2022-08-05 14:00] VITALS: BP 122/91; PULSE 113; RESP 16; TEMP 36.8; O2SAT 92
[2022-08-05 20:28] VITALS: BP 149/86; PULSE 109; RESP 18; TEMP 36.7; O2SAT 95
[2022-08-05] MEDS: traZODone HCL 100 MG TABLET 200 MG PO (20:39)
[2022-08-05] MEDS: Buprenorphine/Naloxone 4/1 mg FILM 1 FILM SUBLINGUAL (20:40)
[2022-08-05 20:42] VITALS: BP 125/85; PULSE 108; RESP 18; O2SAT 97
[2022-08-06] MEDS: Ibuprofen 600 MG TABLET PO (00:07)
--- NOTE | 2022-08-06 00:27 | PC.NURSE ---
Patient requesting PRN Ibuprofen for right shoulder pain-patient describes pain as achy sharp 9/10 on 0-10pain scale. Patient repositioned, right arm elevated on pillow. PRN Ibuprofen administered, effect pending.
[2022-08-06] MEDS: Acetaminophen 325 MG TABLET 650 MG PO ×3 (03:19→20:22)
[2022-08-06] MEDS: Omeprazole 20 MG CAPSULE.DR PO (06:16)
[2022-08-06 07:40] VITALS: BP 154/94; PULSE 103; RESP 18; TEMP 36.4; O2SAT 93
[2022-08-06] MEDS: Buprenorphine/Naloxone 4/1 mg FILM 1 FILM SUBLINGUAL ×2 (08:04→20:22)
[2022-08-06] MEDS: Atorvastatin Calcium 20 MG TABLET PO (08:04)
[2022-08-06] MEDS: buPROPion HCl XL 300 MG TAB.ER.24H PO (08:04)
[2022-08-06] MEDS: hydroCHLOROthiazide 25 MG TABLET PO (08:04)
--- NOTE | 2022-08-06 08:10 | PC.NURSE ---
tasia #20 to l cuong d./c'd, not indicated at this time.
--- NOTE | 2022-08-06 08:13 | PC.NURSE ---
pt is a/o x 4 no sob/zbigniew noted lungs - cta. speaks in slow full sentences. lungs - cta. heart sounds - regular. abd soft and non-tender, bx = x 4 quads. pt ate 75% of breakfast. no edema noted. pt aware of plan of care. pt states 8/10 r shoulder pain
--- NOTE | 2022-08-06 10:04 | PC.NURSE ---
Pt did not want to be cleaned up at this moment. Stated that he wants to try to get some sleep since he did not sleep well last night.
--- NOTE | 2022-08-06 13:58 | MHC.CM.ED ---
Patient remains in ER. Will transfer to [facility] when facility is able to confirm with ISABELL Smallwood MD authorizes that he will send prescriptions for patient's suboxone. Continue to monitor for d/c needs.
--- NOTE | 2022-08-06 14:08 | PC.NURSE ---
pt's whit ([phone]) called [facility] [place] and spoke with the pt.
[2022-08-06 15:32] VITALS: BP 134/88; PULSE 100; RESP 13; TEMP 36.6; O2SAT 93
[2022-08-06] MEDS: traZODone HCL 100 MG TABLET 200 MG PO (20:22)
[2022-08-06 23:52] VITALS: BP 133/86; PULSE 100; RESP 16; TEMP 36.8; O2SAT 94
--- NOTE | 2022-08-07 03:15 | PC.NURSE ---
Received RN to RN report from Ravi. Patient is sleeping at this time. Allowed to rest, will offer and medicate with Tylenol once awake. Continue to monitor.
[2022-08-07] MEDS: Acetaminophen 325 MG TABLET 650 MG PO ×3 (04:54→20:09)
[2022-08-07] MEDS: Ibuprofen 600 MG TABLET PO ×2 (04:54→16:12)
--- NOTE | 2022-08-07 05:03 | PC.NURSE ---
Medicated with Acetaminophen & Ibuprofen for pain 8 out of 10 to shoulder. Urinated 200ml in bedside urinal. Room & bedside table cleaned by this RN. Denies any other needs at this time. Was sleeping, but is now resting and watching TV comfortably. Will continue to monitor.
[2022-08-07 05:29] VITALS: BP 139/94; PULSE 100; RESP 17; TEMP 36.7; O2SAT 93
[2022-08-07] MEDS: Omeprazole 20 MG CAPSULE.DR PO (06:19)
[2022-08-07] MEDS: hydroCHLOROthiazide 25 MG TABLET PO (08:41)
[2022-08-07] MEDS: Buprenorphine/Naloxone 4/1 mg FILM 1 FILM SUBLINGUAL ×2 (08:41→20:12)
[2022-08-07] MEDS: Atorvastatin Calcium 20 MG TABLET PO (08:42)
[2022-08-07] MEDS: buPROPion HCl XL 300 MG TAB.ER.24H PO (08:42)
[2022-08-07 08:48] VITALS: BP 134/91; PULSE 101; TEMP 36.4; O2SAT 93
--- NOTE | 2022-08-07 09:52 | PC.NURSE ---
this ad copy writer assumed care of this pt at 0700, pt resting quietly in bed at the time of assuming care. pt declined breakfast, meds given as documented, vss. no complaints.
--- NOTE | 2022-08-07 18:55 | PC.NURSE ---
assumed care of pt at 1900, pt resting quietly in room, RR even and unlabored
[2022-08-07 19:08] VITALS: BP 163/89; PULSE 96; RESP 18; TEMP 37.1; O2SAT 94
[2022-08-07] MEDS: traZODone HCL 100 MG TABLET 200 MG PO (20:09)
--- NOTE | 2022-08-07 20:12 | PC.NURSE ---
pt a&ox3, vss, medicated per provider order, pt sitting in bed watching TV, no concerns at this time.
[2022-08-08] MEDS: Acetaminophen 325 MG TABLET 650 MG PO ×4 (03:37→21:00)
[2022-08-08 05:23] VITALS: BP 149/80; PULSE 100; RESP 17; TEMP 36.9; O2SAT 93
[2022-08-08] MEDS: Omeprazole 20 MG CAPSULE.DR PO (05:46)
[2022-08-08] MEDS: Ibuprofen 600 MG TABLET PO (05:49)
--- NOTE | 2022-08-08 05:55 | PC.NURSE ---
Assumed care at 00:00. Patient alert and oriented. Reports right shoulder pain of varying character, sometimes sharp, sometimes sore; 04/23 despite scheduled tylenol, PRN ibuprofen given with results pending. Notable for limited ROM to right shoulder.
[2022-08-08] MEDS: Atorvastatin Calcium 20 MG TABLET PO (08:09)
[2022-08-08] MEDS: buPROPion HCl XL 300 MG TAB.ER.24H PO (08:09)
[2022-08-08] MEDS: Buprenorphine/Naloxone 4/1 mg FILM 1 FILM SUBLINGUAL ×2 (08:09→21:00)
[2022-08-08] MEDS: hydroCHLOROthiazide 25 MG TABLET PO (08:09)
--- NOTE | 2022-08-08 13:32 | MHC.CM.ED ---
Addendum entered by Kaya Caballero 08/08/22 13:42: Patient and , Carolina aware of delay in discharge. Original Note: Patient remains in ER. Still waiting for [facility] suboxone provider to confirm with [place] [facility] [place] that he will provide suboxone prescriptions. [facility] today. Anticipate patient will be with us until Thursday. Continue to monitor for d/c needs.
[2022-08-08] MEDS: Meclizine HCl 25 MG TABLET PO (13:36)
[2022-08-08 19:41] VITALS: BP 139/79; PULSE 95; RESP 16; TEMP 36.4; O2SAT 93
--- NOTE | 2022-08-08 19:51 | PC.NURSE ---
Assumed care for pt. Pt is sleeping at this time in no apparent distress. Breaths are even and unlabored with equal chest rises. Pt scheduled to be transferred to [place] pending Suboxone prescription from [place]. Will continue to monitor.
[2022-08-08] MEDS: traZODone HCL 100 MG TABLET 200 MG PO (21:00)
[2022-08-09] MEDS: Acetaminophen 325 MG TABLET 650 MG PO ×4 (02:23→21:23)
--- NOTE | 2022-08-09 03:05 | PC.NURSE ---
Took over care of patient at 2300. Pt sleeping comfortably at the time. Pt A&OX3, pleasant and cooperative. Speech is clear and appropriate. Pt moves all extremities but very slowly. BLE's weak. LS-CTA with no cough or sob. BS+. Pt tolerating diet and is presently having a snack. Denies N/V/D. PP+, no edema. Pt does have old scabs on BLE's. Pt on scheduled Tylenol - pt states his pain is in his right shoulder and neck (see charting). Call joya, urinal and belongings within reach. Will continue to monitor.
[2022-08-09] MEDS: Omeprazole 20 MG CAPSULE.DR PO (05:39)
[2022-08-09 06:00] VITALS: BP 179/79; PULSE 71; TEMP 36.4; O2SAT 96
[2022-08-09] MEDS: hydroCHLOROthiazide 25 MG TABLET PO (08:08)
[2022-08-09] MEDS: Buprenorphine/Naloxone 4/1 mg FILM 1 FILM SUBLINGUAL ×2 (08:08→20:24)
[2022-08-09] MEDS: Atorvastatin Calcium 20 MG TABLET PO (08:08)
[2022-08-09] MEDS: buPROPion HCl XL 300 MG TAB.ER.24H PO (08:09)
[2022-08-09 18:13] VITALS: BP 145/96; PULSE 94; RESP 12; TEMP 36; O2SAT 97
--- NOTE | 2022-08-09 19:10 | PC.NURSE ---
Pt sleeping at this time respirations regular.
[2022-08-09] MEDS: traZODone HCL 100 MG TABLET 200 MG PO (20:24)
--- NOTE | 2022-08-09 21:25 | PC.NURSE ---
Pt resting watching TV no new complaints at this time.
[2022-08-09 22:57] VITALS: BP 129/82; PULSE 92; RESP 16; TEMP 36.6; O2SAT 94
--- NOTE | 2022-08-10 00:08 | PC.NURSE ---
Pt sleeping respirations regular.
--- NOTE | 2022-08-10 02:44 | PC.NURSE ---
Pt sleeping at this time, respirations regular.
--- NOTE | 2022-08-10 04:58 | PC.NURSE ---
Pt sleeping at this time, respirations regular.
[2022-08-10] MEDS: Omeprazole 20 MG CAPSULE.DR PO (06:16)
[2022-08-10] MEDS: Acetaminophen 325 MG TABLET 650 MG PO ×3 (06:16→20:30)
[2022-08-10 06:19] VITALS: BP 160/92; PULSE 100; RESP 16; TEMP 36.6; O2SAT 93
--- NOTE | 2022-08-10 08:02 | PC.NURSE ---
pt reports not being ready to eat breakfast. aware of plan of care and denies having any questions. pt back to sleep at this time.
[2022-08-10] MEDS: hydroCHLOROthiazide 25 MG TABLET PO (10:16)
[2022-08-10] MEDS: buPROPion HCl XL 300 MG TAB.ER.24H PO (10:16)
[2022-08-10] MEDS: Buprenorphine/Naloxone 4/1 mg FILM 1 FILM SUBLINGUAL ×2 (10:16→20:30)
[2022-08-10] MEDS: Atorvastatin Calcium 20 MG TABLET PO (10:16)
--- NOTE | 2022-08-10 13:43 | PC.NURSE ---
pt sleeping at this time, resp even and unlabored. no distress noted.
[2022-08-10 13:44] VITALS: BP 134/97; PULSE 100; RESP 16; O2SAT 94
--- NOTE | 2022-08-10 16:18 | PC.NURSE ---
repositioned, fresh linen on bed. family at bedside.
[2022-08-10] MEDS: traZODone HCL 100 MG TABLET 200 MG PO (20:30)
[2022-08-10] MEDS: Ibuprofen 600 MG TABLET PO (20:33)
[2022-08-10 20:36] VITALS: BP 135/95; PULSE 101; RESP 18; TEMP 36.7; O2SAT 95
--- NOTE | 2022-08-10 20:42 | PC.NURSE ---
Pt resting comfortably in bed watching tv. Reports 8/10 back and right shoulder pain, night meds given as well as prn per pt request. Took all meds without difficulty.
--- NOTE | 2022-08-11 03:46 | PC.NURSE ---
Pt has been asleep resting comfortably.
[2022-08-11] MEDS: Ibuprofen 600 MG TABLET PO (06:04)
[2022-08-11] MEDS: Omeprazole 20 MG CAPSULE.DR PO (06:04)
[2022-08-11 06:05] VITALS: BP 119/89; PULSE 90; RESP 16; TEMP 36.8; O2SAT 95
[2022-08-11 07:17] VITALS: BP 132/88; PULSE 92; RESP 20; TEMP 36.4; O2SAT 92
[2022-08-11] MEDS: hydroCHLOROthiazide 25 MG TABLET PO (08:41)
[2022-08-11] MEDS: Acetaminophen 325 MG TABLET 650 MG PO ×3 (08:41→20:42)
[2022-08-11] MEDS: Atorvastatin Calcium 20 MG TABLET PO (08:41)
[2022-08-11] MEDS: buPROPion HCl XL 300 MG TAB.ER.24H PO (08:41)
[2022-08-11] MEDS: Buprenorphine/Naloxone 4/1 mg FILM 1 FILM SUBLINGUAL ×2 (08:42→20:41)
--- NOTE | 2022-08-11 08:45 | PC.NURSE ---
patient a&ox3, c/o 04/23 back and shoulder pain, pt medicated for pain and with daily meds per order, call joya within reach, will continue to monitor
--- NOTE | 2022-08-11 11:55 | PC.NURSE ---
patient currently sleeping, will continue to monitor
--- NOTE | 2022-08-11 13:19 | MHC.CM.ED ---
Patient remains in ER. [facility] will be able to offer a bed when they get confirmation from Dr Rajat Ferris that he will prescribe Suboxone for patient while he is at short term rehab. [facility] liaison has been trying to get in contact with Dr Ferris without successs. T/W reached out to Maggy [place] transition of care nurse, to try to help facilitate this communication by Dr Ferris. Continue to monitor for d/c needs.
[2022-08-11 16:16] VITALS: BP 144/99; PULSE 99; TEMP 36.5; O2SAT 93
--- NOTE | 2022-08-11 17:03 | MHC.CM.ED ---
CM updated patient on plan, including that CM has reached out to [facility] for [facility] with [facility]one prescription from his provider. CM following for discharge planning.
--- NOTE | 2022-08-11 18:22 | PC.NURSE ---
Assumed patient care at 1500- Patient alert and oriented. VSS. Patient making all needs met. Awaiting placement. Patient has no complaints at this time.
[2022-08-11] MEDS: traZODone HCL 100 MG TABLET 200 MG PO (20:41)
[2022-08-12 00:40] VITALS: BP 141/89; PULSE 96; RESP 16; TEMP 36.4; O2SAT 94
[2022-08-12] MEDS: Acetaminophen 325 MG TABLET 650 MG PO ×3 (03:43→20:29)
[2022-08-12] MEDS: Omeprazole 20 MG CAPSULE.DR PO (06:29)
[2022-08-12 07:11] VITALS: BP 136/88; PULSE 101; RESP 18; O2SAT 92
[2022-08-12] MEDS: buPROPion HCl XL 300 MG TAB.ER.24H PO (08:35)
[2022-08-12] MEDS: hydroCHLOROthiazide 25 MG TABLET PO (08:35)
[2022-08-12] MEDS: Buprenorphine/Naloxone 4/1 mg FILM 1 FILM SUBLINGUAL ×2 (08:35→20:29)
[2022-08-12] MEDS: Atorvastatin Calcium 20 MG TABLET PO (08:35)
--- NOTE | 2022-08-12 08:38 | PC.NURSE ---
alert, ate breakfast, medicated as ordered, skin wpd, speech slow but clear, c/o leg weakness that is not new, watching tv
--- NOTE | 2022-08-12 10:26 | MHC.CM.ED ---
Patient remains in ER overflow. [place] [facility] has been trying to contact Dr Rajat Ferris at the [place] to confirm he will provide Suboxone prescriptions. Maggy [place] RN has also attempted to reach provider without success. Continue to monitor for d/c needs.
--- NOTE | 2022-08-12 13:37 | PC.NURSE ---
incontinent of urine and cleaned w linens changed, alert, watching tv, awaiting lunch,nad
--- NOTE | 2022-08-12 17:02 | PC.NURSE ---
this commercial lines underwriter assumed care of this pt at 1500, pt in his room with his visiting at the bed side at the time of assuming care. per previous rn Tylenol not given as scheduled because the last dose was given less than 6 hours. next dose not due until 1540. med not given d/t pt sleeping.
[2022-08-12] MEDS: traZODone HCL 100 MG TABLET 200 MG PO (20:29)
--- NOTE | 2022-08-12 20:31 | PC.NURSE ---
pt was changed and cleaned and is now resting comfortable with the call joya in reach
--- NOTE | 2022-08-12 20:38 | PC.NURSE ---
routine night meds given, pt cooperative with care. given call joya, able to make needs known
[2022-08-12 21:32] VITALS: BP 120/72; PULSE 97; RESP 19; TEMP 36.8; O2SAT 94
[2022-08-13 00:13] VITALS: BP 131/78; PULSE 86; RESP 18; TEMP 36.7; O2SAT 96
[2022-08-13 06:02] VITALS: BP 127/63; PULSE 76; RESP 18; TEMP 36.4; O2SAT 96
--- NOTE | 2022-08-13 06:03 | PC.NURSE ---
kept checking on pt throughout the night , he voided using the urinal once during the night , he requested esau jay it was given pt was up watching tv til 5am
--- NOTE | 2022-08-13 06:32 | PC.NURSE ---
see downtime sheet for nurses note
[2022-08-13] MEDS: Omeprazole 20 MG CAPSULE.DR PO (06:34)
[2022-08-13] MEDS: Ibuprofen 600 MG TABLET PO (06:34)
[2022-08-13] MEDS: buPROPion HCl XL 300 MG TAB.ER.24H PO (08:32)
[2022-08-13] MEDS: Buprenorphine/Naloxone 4/1 mg FILM 1 FILM SUBLINGUAL ×2 (08:32→20:36)
[2022-08-13] MEDS: Atorvastatin Calcium 20 MG TABLET PO (08:32)
[2022-08-13] MEDS: Acetaminophen 325 MG TABLET 650 MG PO ×3 (08:32→20:36)
[2022-08-13] MEDS: hydroCHLOROthiazide 25 MG TABLET PO (08:32)
--- NOTE | 2022-08-13 08:35 | PC.NURSE ---
patient a&o, c/o back and neck pain, pt medicated per order, pt meds whole with water, uses urinal in bed,vss, call joya within reach, will continue to monitor.
[2022-08-13 09:04] VITALS: BP 135/83; PULSE 115; RESP 14; TEMP 36.3; O2SAT 98
[2022-08-13 14:33] VITALS: BP 138/92; RESP 14; TEMP 36.7; O2SAT 94
--- NOTE | 2022-08-13 15:05 | MHC.CM.ED ---
Patient remains in ER overflow. Per Maggy at [place], she was informed patient's provider will call [place] today. [facility] liaison aware. Radha requesting clinical update with physical therapy note. Requested physical therapy see patient. Clinical updates sent via [facility]. Continue to monitor for d/c needs.
--- NOTE | 2022-08-13 15:13 | PC.NURSE ---
patient a&ox3, c/o back and arm pain, pt medicated for pain per order, call joya within reach, will continue to monitor
--- NOTE | 2022-08-13 15:44 | PC.NURSE ---
patient a&ox3, c/o back and shoulder pain 8-05/24, pt medicated with tylenol per order, ate 100% of lunch, call joya within reach, urinal at bedside, will continue to monitor
--- NOTE | 2022-08-13 19:06 | PC.NURSE ---
Addendum entered by Jaylin Mcduffie RN 08/14/22 03:26: report given to VANCE Lopez Addendum entered by Jaylin Mcduffie RN 08/13/22 20:47: pt is alert and oriented. resting in bed no signs of acute distress notice breathing equally unlabored close monitoring maintained Original Note: report received from VANCE Chauhan
[2022-08-13 20:11] VITALS: BP 125/91; PULSE 100; RESP 16; TEMP 37.2; O2SAT 97
[2022-08-13] MEDS: traZODone HCL 100 MG TABLET 200 MG PO (20:35)
[2022-08-14] MEDS: Omeprazole 20 MG CAPSULE.DR PO (06:16)
[2022-08-14 06:28] VITALS: BP 135/91; PULSE 117; RESP 16; TEMP 36.8; O2SAT 94
[2022-08-14] MEDS: Atorvastatin Calcium 20 MG TABLET PO (09:52)
[2022-08-14] MEDS: hydroCHLOROthiazide 25 MG TABLET PO (09:52)
[2022-08-14] MEDS: buPROPion HCl XL 300 MG TAB.ER.24H PO (09:52)
[2022-08-14] MEDS: Acetaminophen 325 MG TABLET 650 MG PO (09:52)
[2022-08-14] MEDS: Buprenorphine/Naloxone 4/1 mg FILM 1 FILM SUBLINGUAL (09:54)
[2022-08-14 11:12] VITALS: BP 117/89; PULSE 96; RESP 17; TEMP 36.5; O2SAT 92
--- NOTE | 2022-08-14 12:58 | MHC.CM.ED ---
Patient remains in ER overflow. [place] Subox[place] clinic has finally communicated with [place] [facility] that they will prescribe Suboxone, one patient has his follow up virtual appointment on 08/21. Ivy Dow NP has been requested to send a Suboxone prescription for 08/15-08/23 to [facility] so medication can be bridged. Prescription sent by Ivy Dow NP. Radha from [facility] is in the process of verifying prescription was received. Continue to monitor for d/c needs.
[2022-08-14 14:41] LABS: COVID-19 Test Negative (Negative); IDNOW Serial# BCCEAD1C
--- NOTE | 2022-08-14 14:55 | MHC.CM.ED ---
[facility] can accept patient. Repeat Covid swab is negative. Cindy SHAW booked. Patient, Alaina WOODARD, Lucinda MACDONALD aware. Patient's , Carolina made aware via telephone at [phone]. Continue to monitor for d/c needs.
== END 2022-08-14 15:32 | disposition skilled nursing facility (03) ==
PROVIDERS: Nurse Practitioner Family; Physician Assistant; Emergency Provider Internal Medicine; PCP Nurse Practitioner Adult Health
DX: S39.92XA Unspecified injury of lower back, initial encounter (principal); R51.9 Headache, unspecified; R32 Unspecified urinary incontinence; R26.81 Unsteadiness on feet; M25.511 Pain in right shoulder; R00.0 Tachycardia, unspecified; M54.2 Cervicalgia; R42 Dizziness and giddiness; W01.0XXA Fall on same level from slipping, tripping and stumbling without subsequent striking against object, initial encounter; Y93.9 Activity, unspecified; Y92.9 Unspecified place or not applicable; Y99.9 Unspecified external cause status; Z20.822 Contact with and (suspected) exposure to COVID-19; Z79.899 Other long term (current) drug therapy; Z91.81 History of falling
CPT/HCPCS: 0241U; 36415; 70450; 72125; 72131; 80048; 80076; 80307; 81001; 81003; 82550; 83735; 84443; 84484; 85025; 87635; 93005; 96360; 96361; 96365; 97162; 97530; 99285

== ENCOUNTER 2024-01-04 14:51 | Emergency (ER) | payer OTHER, SELFPAY ==
--- NOTE | 2024-01-04 14:52 | ECG_ITS ---
Test Reason : CHEST PAIN Blood Pressure : / mmHG Vent. Rate : 071 BPM Atrial Rate : 071 BPM P-R Int : 154 ms QRS Dur : 102 ms QT Int : 418 ms P-R-T Axes : 013 -20 027 degrees QTc Int : 454 ms Normal sinus rhythm Minimal voltage criteria for LVH, may be normal variant ( R in aVL ) Borderline ECG No previous ECGs available Referred By: Toshia Ramey Electronically Signed By:IAIN NEFF MD
[2024-01-04 14:54] VITALS: BP 133/77; PULSE 77; RESP 18; TEMP 36.8; O2SAT 93; BMI 32.3
--- NOTE | 2024-01-04 14:55 | ED.CHESTPAIN ---
HPI - Chest Pain General Chief Complaint: Chest Pain Stated Complaint: cp Related Data Home Medications ?Medication ?Instructions ?Recorded ?Confirmed atorvastatin 40 mg tablet 20 mg PO DAILY 07/30/22 07/30/22 buprenorphine 2 mg-naloxone 0.5 mg 2 tab sublingual BID 07/30/22 07/30/22 sublingual tablet bupropion HCl 300 mg 24 hr tablet, 300 mg PO QAM 07/30/22 07/30/22 extended release hydrochlorothiazide 25 mg tablet 25 mg PO DAILY 07/30/22 07/30/22 omeprazole 20 mg capsule,delayed 20 mg PO DAILY 07/30/22 07/30/22 release trazodone 100 mg tablet 200 mg PO BEDTIME 07/30/22 07/30/22 Previous Rx's ?Medication ?Instructions ?Recorded buprenorphine 2 mg-naloxone 0.5 mg 1 film sublingual QID #32 ea 08/14/22 sublingual film (Suboxone) Allergies Allergy/AdvReac Type Severity Reaction Status Date / Time No Known Allergies Allergy Verified 01/04/24 14:56 [facility] Social History Social History (System 06/24/23 @ 15:11 by Tosha Martinez) Alcohol intake: former Patient Tobacco Use Status: Never used Tobacco Advance Directives: Yes Advance Directives on File: Yes Advance Directives Date on File: 07/30/22 Do you have a plan to hurt others: No Plan Physical Exam Vital Signs: Vital Signs: Last Vital Signs Temp 98.3 F 01/04/24 14:54 Pulse 77 01/04/24 14:54 Resp 18 01/04/24 14:54 BP 133/77 01/04/24 14:54 Pulse Ox 93 01/04/24 14:54 O2 Del Method Room Air 01/04/24 14:54 BMI result Body Mass Index 32.3 Course Course Course Narrative: This is rapid medical exam. Deferred additional HPI, ROS, PE to primary provider. 63 yo male with history of hypertension, CAD here with complaints of chest pain today. Will check labs, EKG, CXR VSS Medical Decision Making Lab Data 01/04/24 15:20 01/04/24 15:20 Labs: Lab Results 01/04/24 Range/Units 15:20 WBC 8.9 (4.8-10.8) X10*3/uL RBC 3.81 L (4.60-5.80) X10*6/uL Hgb 13.1 L (14.0-18.0) g/dl Hct 36.2 L (42.0-52.0) % MCV 95.0 (80.0-98.0) fL MCH 34.4 H (27.0-33.0) pg MCHC 36.2 H (31.0-36.0) g/dl RDW 13.0 (11.0-16.0) % Plt Count 291 (160-400) X10*3/uL MPV 10.1 (9.4-12.4) fL Immature Gran % (Auto) 0.4 (0.0-0.4) % Neut % (Auto) 58.4 (45-73) % Lymph % (Auto) 26.2 (20-40) % [place] % (Auto) 10.8 (2-11) % Eos % (Auto) 3.6 (0-4) % Baso % (Auto) 0.6 (0-2) % Lymph # (Auto) 2.3 (1.2-4.9) X10*3/uL [place] # (Auto) 1.0 (0.1-1.2) X10*3/uL Eos # (Auto) 0.3 (0.0-0.4) X10*3/uL Baso # (Auto) 0.1 (0.0-0.2) X10*3/uL Abs Immat Gran (auto) 0.04 H (0.00-0.03) X10*3/uL Absolute Neuts (auto) 5.2 (2.0-8.3) x10*3/uL Absolute Nucleated RBC 0.000 (0.0-0.012) X10*3/uL Nucleated RBC % (auto) 0.0 (0.0-0.2) /100WBC Sodium 139 (135-145) mmol/L Potassium 3.6 (3.3-5.1) mmol/L Chloride 104 (96-108) mmol/L Carbon Dioxide 26 (22-29) mmol/L Anion Gap 13 (12-20) BUN 22 H (9-16) mg/dL Creatinine 1.30 (0.5-1.4) mg/dL Estim Creat Clear Calc 60.5 Estimated GFR 56 Random Glucose 115 (60-115) mg/dL Calcium 9.9 (8.4-10.2) mg/dL Total Bilirubin 0.4 (0.0-1.0) mg/dL Direct Bilirubin 0.2 (0.0-0.5) mg/dL AST 18 (5-37) U/L ALT 15 (0-40) U/L Alkaline Phosphatase 55 (39-117) U/L Troponin I High Sens < 2.7 D (<3.5-35.0) ng/L Total Protein 7.6 (6.5-8.0) g/dL Albumin 4.0 (3.5-5.0) g/dL Discharge Plan Discharge Clinical Impression: Chest pain Patient Disposition: Left W/O Completing Treatment Prescriptions: No Action atorvastatin 40 mg Tablet 20 mg PO DAILY omeprazole 20 mg Capsule,Delayed Release(Dr/Ec) 20 mg PO DAILY hydrochlorothiazide 25 mg Tablet 25 mg PO DAILY buprenorphine-naloxone 2-0.5 mg Tablet, Sublingual 2 tab SUBLINGUAL BID bupropion HCl 300 mg Tablet Extended Release 24 Hr 300 mg PO QAM trazodone 100 mg Tablet 200 mg PO BEDTIME buprenorphine-naloxone [Suboxone] 2-0.5 mg film 1 film sublingual QID Qty: 32 0RF Discharge Date/Time: 01/04/24 16:45
[2024-01-04 15:39] LABS: MANUAL DIFF FLAG NO
[2024-01-04 15:40] LABS: Basophils Absolute Auto 0.1 X10*3/uL (0.0-0.2); Basophils Percent Auto 0.6 % (0-2); Eosinophils Absolute Auto 0.3 X10*3/uL (0.0-0.4); Eosinophils Percent Auto 3.6 % (0-4); Hematocrit 36.2 % (42.0-52.0); Hemoglobin 13.1 g/dl (14.0-18.0); Imm Gran Abs Auto 0.04 X10*3/uL (0.00-0.03); Imm Gran Pct Auto 0.4 % (0.0-0.4); Lymphocytes Absolute Auto 2.3 X10*3/uL (1.2-4.9); Lymphocytes Percent Auto 26.2 % (20-40); Mean Corpuscular HGB Conc 36.2 g/dl (31.0-36.0); Mean Corpuscular Hemoglobin 34.4 pg (27.0-33.0); Mean Platelet Volume 10.1 fL (9.4-12.4); Monocytes Percent Auto 10.8 % (2-11); Neutrophils Absolute Auto 5.2 x10*3/uL (2.0-8.3); Neutrophils Percent Auto 58.4 % (45-73); Platelet Count 291 X10*3/uL (160-400); Red Blood Count 3.81 X10*6/uL (4.60-5.80); White Blood Count 8.9 X10*3/uL (4.8-10.8)
[2024-01-04 15:57] LABS: Alanine Aminotransferase 15 U/L (0-40); Alkaline Phosphatase 55 U/L (39-117); Anion Gap 13 (12-20); Aspartate Amino Transferase 18 U/L (5-37); Bilirubin Direct 0.2 mg/dL (0.0-0.5); Bilirubin Total 0.4 mg/dL (0.0-1.0); Blood Urea Nitrogen 22 mg/dL (9-16); Calcium 9.9 mg/dL (8.4-10.2); Carbon Dioxide 26 mmol/L (22-29); Chloride 104 mmol/L (96-108); Creatinine Clr Calc Pharmacy 60.5; Estimated Glomerular Filt Rate 56; Glucose Random 115 mg/dL (60-115); Potassium 3.6 mmol/L (3.3-5.1); Sodium 139 mmol/L (135-145); Total Protein 7.6 g/dL (6.5-8.0)
[2024-01-04 16:07] LABS: Troponin-I High Sensitivity < 2.7 ng/L (<3.5-35.0)
== END 2024-01-04 16:45 | disposition left against medical advice (07) ==
LOC: HO.ED 16:20
PROVIDERS: Nurse Practitioner Family; Emergency Provider Emergency Medicine
DX: R07.9 Chest pain, unspecified (principal); I10 Essential (primary) hypertension; I25.10 Atherosclerotic heart disease of native coronary artery without angina pectoris
CPT/HCPCS: 36415; 80048; 80076; 84484; 85025; 93005; 99283

== ENCOUNTER → 2024-01-04 14:52 | Outpatient (BNV) | payer OTHER, SELFPAY | PROVIDERS: Emergency Provider Emergency Medicine; Visit Provider Internal Medicine Cardiovascular Disease | DX: R07.9 Chest pain, unspecified (principal) | CPT/HCPCS: 93010 ==

== ENCOUNTER 2025-04-06 04:20 | Emergency (ER) | payer OTHER, SELFPAY ==
[2025-04-06] VITALS (12 sets, daily range): BP systolic 107–139; BP diastolic 64–80; PULSE 50–86; RESP 10–16; TEMP -17.7–36.8; O2SAT 94–98; BMI 25.1
--- NOTE | ~2025-04-06 | XR_ITS ---
EXAMINATION: XR CHEST CLINICAL INFORMATION: weakness COMPARISON: 04/29/2022. TECHNIQUE: Frontal view of the chest was obtained. FINDINGS: The cardiac, hilar, and mediastinal contours are normal. Mild aortic mural calcification. The lungs are clear bilaterally. No pneumothorax or effusion. No focal osseous or soft tissue abnormality. XR/XR chest 1V IMPRESSION: No active pulmonary disease. Electronically signed by: Jamey Carter MD 04/06/2025 09:19 AM EDT
--- NOTE | 2025-04-06 04:32 | ECG_ITS ---
Test Reason : WEAKNESS Blood Pressure : */* mmHG Vent. Rate : 58 BPM Atrial Rate : 58 BPM P-R Int : 174 ms QRS Dur : 100 ms QT Int : 484 ms P-R-T Axes : 6 -26 10 degrees QTcB Int : 475 ms Sinus bradycardia Incomplete right bundle branch block Minimal voltage criteria for LVH, may be normal variant ( R in aVL ) Borderline ECG When compared with ECG of 04-Jan-2024 15:11, Incomplete right bundle branch block is now Present Referred By: Generic ED Physician Electronically Signed By: Shukri Marquez
[2025-04-06 04:45] LABS: Hematocrit 37.4 % (42.0-52.0); Hemoglobin 13.7 g/dl (14.0-18.0); Imm Gran Abs Auto 0.04 X10*3/uL (0.00-0.03); Imm Gran Pct Auto 0.4 % (0.0-0.4); Lymphocytes Absolute Auto 2.8 X10*3/uL (1.2-4.9); MANUAL DIFF FLAG NO; Mean Corpuscular HGB Conc 36.6 g/dl (31.0-36.0); Mean Corpuscular Hemoglobin 33.7 pg (27.0-33.0); Mean Corpuscular Volume 92.1 fL (80.0-98.0); NRBC Abs Auto 0.000 X10*3/uL (0.0-0.012); NRBC Pct Auto 0.0 /100WBC (0.0-0.2); Platelet Count 310 X10*3/uL (160-400); Red Blood Count 4.06 X10*6/uL (4.60-5.80); White Blood Count 10.5 X10*3/uL (4.8-10.8)
[2025-04-06 05:00] LABS: Anion Gap 12 (12-20); Blood Urea Nitrogen 15 mg/dL (9-16); Calcium 9.0 mg/dL (8.4-10.2); Carbon Dioxide 24 mmol/L (22-29); Chloride 108 mmol/L (96-108); Creatinine Clr Calc Pharmacy 66.0; Estimated Glomerular Filt Rate > 60; Magnesium 1.9 mg/dL (1.6-2.6); Potassium 4.4 mmol/L (3.3-5.1); Sodium 140 mmol/L (135-145)
[2025-04-06 05:05] LABS: Troponin-I High Sensitivity 2.9 ng/L (<3.5-35.0)
--- NOTE | 2025-04-06 08:14 | ED.GENADULT ---
HPI - General Adult General Chief complaint: Weakness Stated complaint: Fall weakness, unable to stand Time Seen by Provider: 04/06/25 08:07 Source: patient and EMS Mode of arrival: EMS Limitations: no limitations History of Present Illness ED Provider: Loreto Cherry PA-C HPI narrative: Patient is a 65 year old assigned male at with a history of recurrent falls, multiple system atrophy, and HTN presenting to the emergency department today with weakness. Patient states that he got up this morning and felt very weak - having to lower himself to the ground. Patient denies any dizziness, lightheadedness, abdominal pain, nausea, vomiting, fever, chills, blurry vision, double vision, loss of vision, chest pain, difficulty breathing, shortness of breath, back pain, night sweats, pain with urination, increased urinary frequency, increased urinary urgency, blood in his urine or stool, syncope or a near syncopal episode, recent trauma or falls, bowel incontinence, bladder incontinence, or any other complaints at this time. Relieving factors: none Exacerbating factors: none Associated symptoms: weakness Treatments prior to arrival: none Related Data Home Medications ?Medication ?Instructions ?Recorded ?Confirmed atorvastatin 40 mg tablet 20 mg PO DAILY 07/30/22 04/06/25 buprenorphine 2 mg-naloxone 0.5 mg 2 tab sublingual BID 07/30/22 04/06/25 sublingual tablet bupropion HCl 300 mg 24 hr tablet, 300 mg PO DAILY 07/30/22 04/06/25 extended release omeprazole 20 mg capsule,delayed 20 mg PO BID PRN Acid Reflux 07/30/22 04/06/25 release trazodone 100 mg tablet 200 mg PO BEDTIME 07/30/22 04/06/25 amlodipine 5 mg tablet 5 mg PO DAILY 04/06/25 04/06/25 atenolol 50 mg tablet 50 mg PO DAILY 04/06/25 04/06/25 calcium 500 mg (as 1 tab PO BID 04/06/25 04/06/25 carbonate)-vitamin D3 5 mcg (200 unit) tablet (Calcium 500 + D) clonidine 0.2 mg/24 hr weekly 1 patch transdermal TH 04/06/25 04/06/25 transdermal patch donepezil 10 mg tablet 10 mg PO BEDTIME 04/06/25 04/06/25 famotidine 20 mg tablet 20 mg PO BID PRN Acid Reflux 04/06/25 04/06/25 fluticasone propionate 50 2 spray intranasal BEDTIME PRN 04/06/25 04/06/25 mcg/actuation nasal Allergy Symptoms spray,suspension ibuprofen 600 mg tablet 600 mg PO DAILY PRN Pain 04/06/25 04/06/25 lisinopril 30 mg tablet 60 mg PO DAILY 04/06/25 04/06/25 lubiprostone 24 mcg capsule 24 mcg PO BID 04/06/25 04/06/25 magnesium oxide 420 mg tablet 420 mg PO DAILY 04/06/25 04/06/25 mirtazapine 30 mg tablet 30 mg PO BEDTIME 04/06/25 04/06/25 Allergies Allergy/AdvReac Type Severity Reaction Status Date / Time No Known Allergies Allergy Verified 04/06/25 04:31 Review of Systems Constitutional: Constitutional: Reports no additional constitutional complaints, Denies chills, Denies fever(s), Denies night sweats and Reports weakness Eyes: Eyes: Reports no additional eye complaints, Denies blurry vision, Denies change in vision, Denies diplopia, Denies eye discharge, Denies loss of vision and Denies eye pain ENT: Denies dizziness Cardiovascular: Cardiovascular: Reports no additional cardiovascular complaints, Denies chest pain, Denies lightheadedness, Denies Loss of Consciousness and Denies dyspnea Respiratory: Respiratory: Reports no additional respiratory complaints and Denies dyspnea Gastrointestinal: Gastrointestinal: Reports no additional gastrointestinal complaints, Denies abdominal pain, Denies melena, Denies hematochezia, Denies change in bowel habits and Denies change in stool character Genitourinary: Genitourinary: Reports no additional male genitourinary complaints, Denies hematuria, Denies oliguria, Denies difficulty urinating, Denies dysuria, Denies urinary frequency, Denies urinary hesitancy, Denies urinary incontinence and Denies urinary urgency Musculoskeletal: Musculoskeletal: Reports no additional musculoskeletal complaints, Denies numbness and Denies tingling Neurologic: Denies dizziness, Denies loss of vision, Denies numbness, Denies tingling and Reports weakness Psychiatric: Psychiatric: Reports no additional psychiatric complaints Endocrine: Endocrine: Reports no additional endocrine complaints Hematologic/Lymphatic: Hematologic/Lymphatic: Reports no additional hematologic/lymphatic complaints Allergic/Immunologic: Allergic/Immunologic: Reports no additional allergic/immunologic complaints PMFSH Past Medical History Attestation statement: The following information was validated with the patient. Source: old records reviewed and nursing notes reviewed Social History Social History Alcohol intake: former Patient Tobacco Use Status: Never used Tobacco Advance Directives Date on File: 07/30/22 Physical Exam ED Vital Signs: Vital Signs - 24 hr 04/06/25 04:28 04/06/25 04:33 04/06/25 06:20 Temperature 97.6 F 97.6 F 97.9 F Pulse Rate 62 62 55 Respiratory Rate 13 13 14 Blood Pressure 133/75 133/75 118/69 Pulse Oximetry 95 95 95 Oxygen Delivery Method Room Air Room Air Room Air 04/06/25 08:13 04/06/25 08:51 04/06/25 08:55 Temperature 97.7 F 97.9 F Pulse Rate 50 56 Respiratory Rate 10 L Blood Pressure 107/64 130/71 Pulse Oximetry 94 Oxygen Delivery Method Room Air 04/06/25 08:56 04/06/25 08:59 04/06/25 10:29 Temperature Pulse Rate 63 72 59 Respiratory Rate 16 Blood Pressure 138/69 139/68 124/65 Pulse Oximetry 97 Oxygen Delivery Method Room Air 04/06/25 11:41 04/06/25 12:53 04/06/25 13:58 Temperature 98.3 F 0 F L Pulse Rate 59 54 60 Respiratory Rate 14 14 Blood Pressure 124/65 127/67 133/74 Pulse Oximetry 97 96 94 Oxygen Delivery Method Room Air Room Air BMI result Body Mass Index 25.1 Const General: cooperative, no acute distress, alert and awake Nutritional Appearance: well nourished Orientation/consciousness: patient oriented x3 HENMT Head: Yes normal to inspection and Yes atraumatic Ears: hearing grossly normal bilaterally and external ears normal General nose exam: Normal external nose present, no nasal discharge noted and no epistaxis Face and sinus: Yes normal facial exam, No abrasion and No laceration Mouth: Normal oral and palatal mucosa present, no drooling and no muffled voice Eyes General: appearance normal, both eyes and all related structures Periorbital: periorbital findings normal Eyelids: Yes eyelids normal Conjunctivae: conjunctivae normal Pupils: Equal, round and reactive pupils present EOM: EOMs intact bilaterally Neck Neck: Yes normal visual inspection, Yes full ROM and Yes no lymphadenopathy Resp Effort & Inspection: normal respiratory effort and able to speak in complete sentences Neuro General: patient oriented x3, moves all extremities and CN's II-XI intact bilaterally Cranial nerves: Yes Equal, round and reactive pupils present Cognition (Neuro): normal cognition Extrem General: Yes normal to inspection, Yes full ROM and Yes capillary refill normal Psych Appearance: grossly normal Mental Status: mental status grossly normal Affect: normal affect Attitude: cooperative Thought process: Normal thought process present Thought content: Normal thought content present Insight: Good insight present (Psych) Medications Administered Discontinued Medications Generic Name Dose Route Start Last Admin Trade Name Freq PRN Reason Stop Dose Admin Sodium Chloride 1,000 mls @ 999 mls/hr 04/06/25 08:45 04/06/25 10:30 Ns IV 04/06/25 09:45 Infused .Q1H1M MINE Infusion Medical Decision Making Medical Decision Making [facility] Narrative: Patient is a 65 year old assigned male at with a history of recurrent falls, multiple system atrophy, and HTN presenting to the emergency department today with weakness. Patient's physical exam was unremarkable. Patient's blood work was unremarkable. Patient's urine showed no acute process. Patient's EKG was unremarkable. Patient's chest x-ray showed no acute process. I explained my physical exam findings as well as all test results to the patient. I answered all questions asked by the patient. Given the patient's continued weakness and inability to ambulate safely - patient placed in observation at 0906 on 04/06/2025. Patient to be evaluated by the physical therapist and case management. 04/06/2025 1319 Ayleen Cherry PA-C ---> Patient evaluated by PT who recommended short term rehab. Unfortunately, the patient does not have STR benefits, cannot afford to privately pay for STR, and does not have an inpatient qualify stay. Patient has opted to discharge home with his and VNA. Patient's observation ended at 1319. Patient does not meet need / criteria for hospitalization. Differential Diagnosis Differential Diagnoses: The differential diagnosis associated with the presentation includes Weakness Deconditioning Admission/Observation Consideration of admission/observation: Escalation of care including admission/observation considered Patient would have been admitted to the hospital had his work up had any findings where hospital admission was appropriate and his clinical presentation warranted hospital admission. Lab Data MDM Lab Attestation statement: I reviewed the patient's lab results. My interpretation of these results are in the MDM Rationale portion of this note. 04/06/25 04:39 04/06/25 04:39 Labs: Lab Results 04/06/25 04/06/25 04/06/25 Range/Units 04:39 09:15 10:34 WBC 10.5 (4.8-10.8) X10*3/uL RBC 4.06 L (4.60-5.80) X10*6/uL Hgb 13.7 L (14.0-18.0) g/dl Hct 37.4 L (42.0-52.0) % MCV 92.1 (80.0-98.0) fL MCH 33.7 H (27.0-33.0) pg MCHC 36.6 H (31.0-36.0) g/dl RDW 12.1 (11.0-16.0) % Plt Count 310 (160-400) X10*3/uL MPV 9.3 L (9.4-12.4) fL Immature Gran % (Auto) 0.4 (0.0-0.4) % Neut % (Auto) 60.2 (45-73) % Lymph % (Auto) 26.6 (20-40) % [place] % (Auto) 9.2 (2-11) % Eos % (Auto) 3.0 (0-4) % Baso % (Auto) 0.6 (0-2) % Lymph # (Auto) 2.8 (1.2-4.9) X10*3/uL [place] # (Auto) 1.0 (0.1-1.2) X10*3/uL Eos # (Auto) 0.3 (0.0-0.4) X10*3/uL Baso # (Auto) 0.1 (0.0-0.2) X10*3/uL Abs Immat Gran (auto) 0.04 H (0.00-0.03) X10*3/uL Absolute Neuts (auto) 6.3 (2.0-8.3) x10*3/uL Absolute Nucleated RBC 0.000 (0.0-0.012) X10*3/uL Nucleated RBC % (auto) 0.0 (0.0-0.2) /100WBC Sodium 140 (135-145) mmol/L Potassium 4.4 D (3.3-5.1) mmol/L Chloride 108 (96-108) mmol/L Carbon Dioxide 24 (22-29) mmol/L Anion Gap 12 (12-20) BUN 15 (9-16) mg/dL Creatinine 1.10 (0.5-1.4) mg/dL Estim Creat Clear Calc 66.0 Estimated GFR > 60 Random Glucose 101 (60-115) mg/dL Calcium 9.0 D (8.4-10.2) mg/dL Magnesium 1.9 (1.6-2.6) mg/dL Troponin I High Sens 2.9 (<3.5-35.0) ng/L Urine Color Yellow Urine Appearance Cloudy Urine pH 7.5 (5.0-9.0) Ur Specific [place] 1.020 (1.005-1.025) Urine Protein Negative (Neg-Trace) mg/dL Urine Glucose (UA) Negative (Negative) mg/dL Urine Ketones Negative (Negative) mg/dL Urine Blood Negative (Negative) Urine Nitrite Negative (Negative) Ur Leukocyte Esterase Negative (Negative) Influenza Type A (PCR) NEGATIVE (Negative) Influenza Type B (PCR) NEGATIVE (Negative) RSV RNA Qual (PCR) NEGATIVE (Negative) SARS-CoV-2 RNA (RT-PCR) NEGATIVE (Negative) Independent Interpretation I performed an independent interpretation of an: EKG and Plain X-Ray Interpretation: My interpretation is in agreement with the radiologist's impression of this imaging study. EXAMINATION: XR CHEST CLINICAL INFORMATION: weakness COMPARISON: 04/29/2022. TECHNIQUE: Frontal view of the chest was obtained. FINDINGS: The cardiac, hilar, and mediastinal contours are normal. Mild aortic mural calcification. The lungs are clear bilaterally. No pneumothorax or effusion. No focal osseous or soft tissue abnormality. XR/XR chest 1V IMPRESSION: No active pulmonary disease. Electronically signed by: Jamey Carter MD 04/06/2025 09:19 AM EDT Dictated By: Jamey Carter MD Signed By: Electronically signed by Jamey Carter MD 04/06/25 I independently interpreted this EKG and am in agreement with the below findings: Vent. Rate: 58 BPM Atrial Rate: 58 BPM P-R Int: 174 ms QRS Dur: 100 ms QT Int: 484 ms P-R-T Axes: 6 -26 10 degrees QTcB Int: 475 ms Sinus bradycardia Incomplete right bundle branch block Minimal voltage criteria for LVH, may be normal variant (R in aVL) When compared with ECG of 04-Jan-2024 15:11, Incomplete right bundle branch block is now Present Electronically Signed By: Shukri Marquez Dictated By: Shukri Marquez MD Signed By: Electronically signed by Shukri Marquez MD 04/06/25 1012 Radiology Impression Discussion of test interpretation with radiology: I have reviewed the radiologist's reading. Independent Historian Clinical information obtained from an independent historian. History obtained from or confirmed by: EMS (EMS provided additional history and confirmed the history provided by the patient) Discharge Plan Discharge Clinical Impression: Weakness Patient Disposition: Home, Self-Care Instructions: Weakness (ED) Additional Instructions: Follow up with your primary care provider. Return to the emergency department immediately if your symptoms worsen or if you develop any numbness, tingling, dizziness, shortness of breath, difficulty breathing, chest pain, blurry vision, loss of vision, nausea, vomiting, abdominal pain, fever, chills, back pain, or any other complaints. Please see the information below about our Patient Portal. If you are not yet enrolled in the [facility] Patient Portal, you will receive an enrollment email invitation following your visit to any [facility] care setting. You may also self-enroll in the Patient Portal by visiting our website: [email or web address] The following information is required to access the Patient Portal: - Your [facility] [place] Number - Your personal home email address (must match what is in your electronic medical record, Registration staff can assist with this) - Name - Date of Capabilities of the Patient Portal: - Message some providers - View upcoming appointments - Access your health summary, medical history, and visit history - View current conditions and allergies - View procedure and lab results - View your medications, including guidelines, side effects, and precautions - Complete pre-appointment questionnaires requested by your provider - Ready summary reports of your office visits and procedures To access the Patient Portal Mobile [employer], follow these directions: - Search [email or web address] in the [employer] Store or Google Play Store - Download the [employer] - Search for [facility] - Enter your login/password Prescriptions: No Action atorvastatin 40 mg Tablet 20 mg PO DAILY omeprazole 20 mg Capsule,Delayed Release(Dr/Ec) 20 mg PO BID PRN (Reason: Acid Reflux) buprenorphine-naloxone 2-0.5 mg Tablet, Sublingual 2 tab SUBLINGUAL BID bupropion HCl 300 mg Tablet Extended Release 24 Hr 300 mg PO DAILY trazodone 100 mg Tablet 200 mg PO BEDTIME amlodipine 5 mg Tablet 5 mg PO DAILY magnesium oxide 420 mg Tablet 420 mg PO DAILY clonidine 0.2 mg/24 hr Patch Weekly 1 patch TRANSDERMAL TH donepezil 10 mg Tablet 10 mg PO BEDTIME famotidine 20 mg Tablet 20 mg PO BID PRN (Reason: Acid Reflux) mirtazapine 30 mg Tablet 30 mg PO BEDTIME lisinopril 30 mg Tablet 60 mg PO DAILY ibuprofen 600 mg Tablet 600 mg PO DAILY PRN (Reason: Pain) fluticasone propionate [Flonase] 50 mcg/actuation [place],Suspension 2 spray INTRANASAL BEDTIME PRN (Reason: Allergy Symptoms) Rx Instructions: administer into each nostril atenolol 50 mg Tablet 50 mg PO DAILY calcium carbonate-vitamin D3 [Calcium 500 + D] 500 mg-5 mcg (200 unit) Tablet 1 tab PO BID lubiprostone 24 mcg Capsule 24 mcg PO BID Referrals: [facility] [Outside] Ai Garduno NP [Primary Care Provider, Internal Medicine] Interventions: ED Discharge Assessment Last Done: 04/06/25 13:58 Discharge Date/Time: 04/06/25 14:06 Print Language: Welsh
--- NOTE | 2025-04-06 09:05 | PC.NURSE ---
65 M presents to ED with lower extremity weakness since waking up this morning, normally ambulates with a walker. A+Ox4 and was very weak when standing him up 1-2 assist standing. Pt denies any CP or SOB. RR even and unlabored.
--- NOTE | 2025-04-06 09:33 | PC.NURSE ---
Pt noted to have clonidine patch on L shoulder. Pt sts he applies 1 patch every week and also takes PO meds for hypertension. Pt noted to have tremors, has tremors at baseline but patient sts tremors have gotten worse lately.
[2025-04-06 10:07] LABS: Resp Syncy Virus RNA Qual PCR NEGATIVE (Negative); SARS COV2 PCR INHOUSE NEGATIVE (Negative)
[2025-04-06 10:42] LABS: Appearance Urine Cloudy; Glucose Urine UA Negative (Negative); PH 7.5 (5.0-9.0); Specific Gravity - Urine 1.020 (1.005-1.025)
--- NOTE | 2025-04-06 10:46 | PC.NURSE ---
called pharmacy for a med/rec
--- NOTE | 2025-04-06 11:06 | PC.NURSE ---
pt transferred into hospital bed for comfort
--- NOTE | 2025-04-06 13:10 | PHA.MEDREC ---
Pharmacy Consult ? Medication Reconciliation Pharmacy has completed the medication reconciliation. Used med list from [place] and also spoke to patient to confirm med list. Per patient, he applies the clonidine patches every and is due for a new patch today 04/06/25. Last dose of medications was yesterday @1700.
--- NOTE | 2025-04-06 13:32 | MHC.CM.ED ---
Addendum entered by Kaya Caballero 04/06/25 13:35: Per patient, [place] already arranged outpatient neurology and other provider appointment for patient. Original Note: Received case management consult from Loreto MACDONALD. Patient came to the ER due to weakness. Work up essentially negative. Physical therapy eval completed. Rehab is recommended. Patient has VA benefits but is not SNF eligible via the VA. Has Medicare: [id number]. Does not appear to have a qualifying hospital stay. Referral made to all 3 acute rehab facilities. No acute rehab bed offered. Met with patient in regards to discharge planning. Patient lives with his , uses a cane/walker for mobility and has a home health aide through the [facility]. PCP verified. Copy of HCP verified to be on file. Patient is not able to privately pay for STR and would prefer to d/c home. Patient has been active with [facility] in the past. Referral made for their agency. Patient's will be on-site at 2pm to transport patient home. Patient, Melanie WOODARD and Loreto MACDONALD aware. Continue to monitor for d/c needs.
== END 2025-04-06 14:06 | disposition home or self-care (01) ==
PROVIDERS: Physician Assistant Medical; Emergency Provider Emergency Medicine; PCP Nurse Practitioner Family
DX: R53.1 Weakness (principal); I10 Essential (primary) hypertension; R29.6 Repeated falls
CPT/HCPCS: 36415; 71045; 80048; 81003; 83735; 84484; 85025; 87637; 93005; 96360; 97162; 99285

== ENCOUNTER → 2025-04-06 04:32 | Outpatient (BNV) | payer OTHER, SELFPAY | PROVIDERS: PCP Nurse Practitioner Family; Visit Provider Internal Medicine Cardiovascular Disease | DX: I45.10 Unspecified right bundle-branch block (principal); R00.1 Bradycardia, unspecified | CPT/HCPCS: 93010 ==

== ENCOUNTER → 2025-04-06 09:07 | Outpatient (BNV) | payer OTHER, SELFPAY | PROVIDERS: PCP Nurse Practitioner Family; Visit Provider Radiology Diagnostic Radiology | DX: R53.1 Weakness (principal) | CPT/HCPCS: 71045 ==